=== PATIENT | female | born 2005 | race Two or more races ===

== ENCOUNTER 2024-03-26 14:56 | Emergency (ER) | payer MEDICAID, SELFPAY ==
[2024-03-26 15:44] VITALS: BP 111/75; PULSE 79; RESP 16; TEMP 36.9; O2SAT 96
--- NOTE | 2024-03-26 15:50 | XR_ITS ---
Examination: Complete OB ultrasound, less than 14 weeks, transabdominal Date and time of exam: March 26, 2024 at 1626 hrs. Indications: Onset of vaginal bleeding and pelvic pain beginning today Technique: Obstetrical ultrasound images less than 14 weeks performed via transabdominal imaging Findings: Uterus 9.1 x 4.4 x 5.5 cm No uterine mass or intrauterine gestation Endometrial stripe 0.5 cm Right ovary 3.8 x 1.9 x 2.7 cm arterial flow Left ovary 4.1 x 2.0 x 2.5 cm arterial flow Impression: No uterine mass or intrauterine gestation
--- NOTE | 2024-03-26 15:50 | PD.EDRME ---
Rapid Medical Screening Exam RME Arrival date/time: 03/26/24 14:56 18-year-old female approximately 5 weeks gestation reports with complaints of copious amounts of vaginal bleeding since this morning Chief Complaint: Abdominal Pain Time Seen by Provider: 03/26/24 15:44 Vital signs: Vital Signs Temperature 98.5 F 03/26/24 15:44 Pulse Rate 79 03/26/24 15:44 Respiratory Rate 16 03/26/24 15:44 Blood Pressure 111/75 03/26/24 15:44 Pulse Oximetry (%) 96 03/26/24 15:44 Oxygen Delivery Method Room Air 03/26/24 15:44
[2024-03-26 16:36] LABS: Beta HCG,Quantitative 162 mIU/mL (<5.0)
[2024-03-26 18:03] LABS: Collection Type, Urine Clean Catch
[2024-03-26 18:33] LABS: Bilirubin,Urine Negative (Negative); Blood,Urine 3+ (Negative); Clarity,Urine Clear (Clear/Hazy); Color,Urine Lt-Yellow (Lt Yel-Yel); Culture Indicated,Urine Not Indicated; Glucose, Urine Negative (Negative); Ketones,Urine Negative (Negative); Leukocyte Esterase,Urine Negative (Negative); Nitrite,Urine Negative (Negative); Protein,Urine Negative (Neg - Trace); RBC,Urine 3 /hpf (0-3); Specific Gravity,Urine 1.007 (1.001-1.035); Squamous Epithelial Cell,Urine 1 /hpf (0-5); Urobilinogen,Urine Negative mg/dL (0.0-1.0); WBC,Urine < 1 /hpf (0-5)
--- NOTE | 2024-03-26 19:17 | EDNOTE_ITS ---
ED OB Contraction Preg RMI/HPI General Chief complaint: Abdominal Pain Stated complaint: 5 WEEKS WITH VAGINAL BLEEDING Time Seen by Provider: 03/26/24 15:44 Arrival date/time: 03/26/24 14:56 18-year-old female presents emergency department complaining of vaginal bleeding when she uses the restroom and wipes to clean herself. Patient reports has not been bleeding enough the place pad but does notice bleeding when wiping. Patient denies any fever, chills, abdominal pain, nausea vomiting, weakness, or any other associated symptoms. Limitations: no limitations RME / HPI RME / HPI Narrative: 03/26/24 14:56 18-year-old female approximately 5 weeks gestation reports with complaints of copious amounts of vaginal bleeding since this morning Related Data : 2 Para: 1 Home Medications ?Medication ?Instructions ?Recorded ?Confirmed vits no.124-ferrous fum 1 tab PO QDAY 08/24/19 08/25/19 27 mg iron-folic acid 800 mcg tablet ( Vitamin) Allergies Allergy/AdvReac Type Severity Reaction Status Date / Time Penicillins Allergy Severe Hives Verified 03/26/24 15:04 Review of Systems Review of Systems Systems Reviewed: All systems reviewed, normal except as documented Constitutional Constitutional: Reports system reviewed and no additional complaints, except as documented, Denies body ache(s), Denies chills and Denies fever(s) Eyes Eyes: Reports system reviewed and no additional complaints, except as documented and Denies change in vision ENT Ears, Nose, Mouth, and Throat: Reports system reviewed and no additional complaints, except as documented, Denies disequilibrium, Denies dizziness, Denies sore throat and Denies vertigo Cardiovascular Cardiovascular: Reports system reviewed and no additional complaints, except as documented, Denies chest pain and Denies dyspnea Respiratory Respiratory: Reports system reviewed and no additional complaints, except as documented, Denies chest congestion, Denies cough and Denies dyspnea Gastrointestinal Gastrointestinal: Reports system reviewed and no additional complaints, except as documented, Denies abdominal pain, Denies nausea and Denies vomiting Genitourinary Genitourinary: Reports abnormal vaginal bleeding Musculoskeletal Musculoskeletal: Reports system reviewed and no additional complaints, except as documented, Denies abnormal gait and Denies arthralgias Integumentary/Breasts Skin/Breast: Reports system reviewed and no additional complaints, except as documented, Denies erythema, Denies rash and Denies wounds Neurologic Neurologic: Reports system reviewed and no additional complaints, except as documented, Denies abnormal gait, Denies disequilibrium, Denies dizziness and Denies vertigo Past Medical History Past Medical History NEUROLOGIC: Negative Neurological Disorders CARDIAC: Negative Cardiac Disorders or Congestive Heart Failure RESPIRATORY: Positive Asthma (LAST USE OF INHALER ONE YR AGO); Negative Chronic Obstructive Pulmonary Disease (COPD) GASTROINTESTINAL: Negative Gastrointestinal Disorders or Hepatitis GENITOURINARY: Negative Genitourinary Disorders or Renal Disease MUSCULOSKELETAL: Negative Musculoskeletal Disorders ENDOCRINE: Negative Endocrine Disorders, Diabetes Mellitus Type 1 or Diabetes Mellitus Type 2 HEMATOLOGIC: Negative Blood Disorders PSYCHO/SOCIAL: Positive Anxiety (NO MEDS THERAPY ONE YR AGO) and Self- Mutilation (CUTTING ONE YEAR AGO NO MEDS) OTHER HISTORY: Positive Hospitalization and Chicken Pox ( CHILD IN [place]); Negative Autoimmune Disease, Down Syndrome, Developmental Delay, Shingles, Falls, Anesthesia Reactions, MRSA, VRSA, Vancomycin-Resistant Enterococci, Human Immunodeficiency Virus (HIV), Measles, Mumps, Rubella (Citizen [place] Measles), Pertussis, Clostridium Difficile or Cancer Family History FAMILY HISTORY: Positive Family Cardiac Disorders (MATERNAL GRANDMOTHER); Negative Family Psychiatric Problems, Family Respiratory Disorders, Family Gastrointestinal Problems, Family Cancer, Family Surgery or Family Anesthesia Reaction Social History SMOKING STATUS: Never smoker ED Exam General Limitations: Present no limitations General appearance: Present alert and in no apparent distress Head Head exam: Present atraumatic Eye Eye exam: Present normal appearance, PERRL and EOMI ENT ENT exam: Present normal exam, normal oropharynx and mucous membranes moist Neck Neck exam: Present normal inspection, full ROM and trachea midline Chest Chest inspection: Present normal inspection and symmetric chest wall rise Respiratory Respiratory exam: Present normal lung sounds bilaterally Cardiovascular Cardiovascular exam: Present regular rate, normal rhythm and normal heart sounds Abdominal Exam Abdominal exam: Present soft and normal bowel sounds Extremities Exam Extremities exam: Present normal inspection and full ROM Back Exam Back exam: Present normal inspection and full ROM Neurological Exam Neurological exam: Present alert, oriented X3 and CN II-XII intact Psychiatric Psychiatric exam: Present normal affect and normal mood Skin Skin exam: Present warm, dry, intact and normal color Course Quality Measures none Orders Category Date Time Status US OB <= 14 weeks fetus Stat Exams 03/26/24 15:50 Completed Beta HCG,Quantitative Stat Lab 03/26/24 16:03 Completed Chlamydia/GC/TV - PCR Stat Lab 03/26/24 17:45 Received UA, C/S IF [Urinalysis, C/S if Indicated] Stat Lab 03/26/24 17:45 Completed Vital Signs Vital signs: Vital Signs Temperature 98.5 F 03/26/24 15:44 Pulse Rate 79 03/26/24 15:44 Respiratory Rate 16 03/26/24 15:44 Blood Pressure 111/75 03/26/24 15:44 Pulse Oximetry (%) 96 03/26/24 15:44 Oxygen Delivery Method Room Air 03/26/24 15:44 96% room air within normal limits Vaginal Bleeding MDM Narrative MDM Narrative: 18-year-old female approximately 5 weeks presents emergency department complaining of vaginal bleeding when she uses the restroom and wipes to clean herself. Patient reports has not been bleeding enough the place pad but does notice bleeding when wiping. Patient denies any fever, chills, abdominal pain, nausea vomiting, weakness, or any other associated symptoms. Patient appears nontoxic and is hemodynamically stable. Ultrasound was unremarkable for any intrauterine gestation but may be too early. Beta hCG 162. Urinalysis was unremarkable. Patient discharged and instructed to follow-up with CLASSIFIER OPERATOR for repeat ultrasound and beta-hCG trend. Instructed to return to emergency department for any worsening symptoms or as needed. Patient data External records reviewed:: [facility] previous records Clinical information provided by:: patient Social determinants that could affect healthcare access:: none Patient has the following chronic illnesses:: None How is presenting disease/condition affected by chronic disease/condition?: no chronic disease Evaluation data The following diagnostics were reviewed and interpreted by me:: lab results and radiology exam(s) Lab and/or radiology exams considered but not ordered:: Ordered Interpretation Summary: Interpreted by me Medications / Prescriptions Medications or Prescriptions considered but not ordered:: N/A Medication administrations:: N/A Consultations Consultation(s) initiated? (list below): No Diagnosis Vaginal Bleeding Differential Diagnosis: threatened , incomplete and vaginal bleeding Most likely diagnosis given after review of the tests above:: Vaginal bleeding affecting early Admission Indicated Admission indicated?: not indicated Admission Request Was there a request for admission?: No Disposition Plan Disposition Plan: Discharge Discharge Attestation Discharge Attestation: The patient and all family members were given an opportunity to ask questions and understood the discharge instructions. Discharge instructions specifically effects, indications for sooner follow up or return to the emergency department, and the expected course of current diagnosis. Patient condition: Stable Discharge Plan Plan Patient Disposition: HOME (Self Care) Disposition Comment: Stable Prescriptions/Referrals Prescriptions/Med Rec: No Action Vitamin 27 mg iron- 800 mcg Tablet 1 tab PO QDAY Referrals: Albert Johnson MD [Primary Care Provider] - In 1 week Problem List Clinical Impression: Vaginal bleeding affecting early Patient/Caregiver Discharge Instructions Discharge Activity: activity as tolerated Education Materials: Bleeding During Early Additional Instructions: Pelvic rest. Encourage fluids. Close follow-up with CLASSIFIER OPERATOR 24 to 48 hours for repeat ultrasound and beta-hCG trend. Print Language: Maltese Stand Alone Forms: Brianna Award Info., Patient Portal Info Letter PA/DIRECTOR OF CORPORATE STRATEGY Supervising Physician PA/DIRECTOR OF CORPORATE STRATEGY Supervising Physician: Dr. Stanley
[2024-03-27 08:58] LABS: Chlamydia trachomatis PCR Negative (Not Detect); Neisseria Gonorrhoeae DNA PCR Negative (Not Detect); Trichomonas Negative (Negative)
== END 2024-03-26 19:23 | disposition home or self-care (01) ==
PROVIDERS: Physician Assistant; Emergency Provider Emergency Medicine; PCP Family Medicine
DX: O20.9 Hemorrhage in early pregnancy, unspecified (principal); Z3A.01 Less than 8 weeks gestation of pregnancy
CPT/HCPCS: 36415; 76801; 81001; 84702; 87491; 87591; 87661; 99284

== ENCOUNTER 2024-07-17 14:14 | Emergency (ER) | payer MEDICAID, SELFPAY ==
[2024-07-17 14:15] VITALS: BMI 28.3
[2024-07-17 14:22] VITALS: BP 129/78; PULSE 97; RESP 18; TEMP 36.7; O2SAT 98
--- NOTE | 2024-07-17 14:27 | XR_ITS ---
Examination: Complete OB ultrasound, less than 14 weeks, transabdominal Date and time of exam: July 17, 2024 1457 hours INDICATIONS: Pelvic pressure with discharge, vaginal, today Technique: Obstetrical ultrasound images less than 14 weeks performed via transabdominal imaging Findings: A normal shaped single intrauterine gestation is present in the uterus. pole 2.6 cm corresponds to 9 weeks 2 days gestational age Cardiac motion 182 BPM Ultrasonographic survey of visible and placental structures unremarkable. Amniotic fluid volume appears appropriate for this estimated gestational age. Right ovary obscured by bowel gas Left ovary 3.3 cm arterial flow IMPRESSION: Viable intrauterine gestation 9 weeks 2 days.
[2024-07-17 15:10] LABS: Basophils % (Auto) 0 % (0-2.5); Eosinophils # (Auto) 0.1 Thou/mm3 (0.0-0.5); Eosinophils % (Auto) 1 % (0-10); Hematocrit 36.5 % (36.0-46.0); Hemoglobin 12.7 g/dL (12.0-16.0); Immature Granulocytes % (Auto) 1 % (0-0); Immature Granulocytes Auto 0.05 Thou/mm3 (0.00-0.00); Lymphocytes # (Auto) 2.1 Thou/mm3 (1.0-4.8); Lymphocytes % (Auto) 21 % (10-50); Mean Corpuscular HGB Conc 34.8 g/dl (31.0-37.0); Mean Corpuscular Hemoglobin 30.5 pg (25.0-35.0); Mean Corpuscular Volume 88 fL (80-100); Monocytes # (Auto) 0.8 Thou/mm3 (0.0-0.8); Monocytes % (Auto) 7 % (0-12); Neutrophils # (Auto) 7.2 Thou/mm3 (1.8-7.7); Neutrophils % (Auto) 70 % (37-80); Nucleated Red Blood Cell % 0 /100 WBC (0); Platelet Count 263 Thou/mm3 (140-440); RDW Standard Deviation 39.1 fL (36.4-46.3); Red Blood Count 4.16 Miln/mm3 (4.00-5.20); White Blood Count 10.2 Thou/mm3 (3.6-11.0)
[2024-07-17 15:24] LABS: Collection Type, Urine Clean Catch
[2024-07-17 15:28] LABS: Alanine Aminotransferase 22 U/L (10-49); Albumin, Serum 4.1 gm/dL (3.5-5.0); Albumin/Globulin Ratio 1.4 (1.2-2.2); Alkaline Phosphatase 111 U/L (46-116); Anion Gap 10 (7-16); Aspartate Amino Transferase 21 U/L (0-34); BUN/Creatinine Ratio 10 Ratio (12-20); Bilirubin,Total 0.3 mg/dL (0.3-1.2); Blood Urea Nitrogen 6 mg/dL (9-23); Calcium 9.1 mg/dL (8.3-10.6); Calcium (Corrected) 9.1 mg/dL (8.5-10.1); Carbon Dioxide 24.1 mMol/L (20.0-31.0); Chloride 104 mMol/L (98-107); Creatinine (Component) 0.6 mg/dL (0.6-1.3); Estimated Creatinine Clearance 130.9 mL/min (>60); Glucose 98 mg/dL (74-106); Osmolality,Calculated 273 (275-295); Potassium 3.6 mMol/L (3.4-5.1); Sodium 138 mMol/L (136-145); Total Protein 7.1 gm/dL (5.7-8.2); eGFR > 60 See Note
[2024-07-17 15:41] LABS: Bilirubin,Urine Negative (Negative); Blood,Urine Trace (Negative); Clarity,Urine Clear (Clear/Hazy); Color,Urine Lt-Yellow (Lt Yel-Yel); Culture Indicated,Urine Not Indicated; Glucose, Urine Negative (Negative); Ketones,Urine Negative (Negative); Leukocyte Esterase,Urine Negative (Negative); Nitrite,Urine Negative (Negative); PH,Urine 6.5 (5.0-7.0); Protein,Urine Negative (Neg - Trace); RBC,Urine < 1 /hpf (0-3); Specific Gravity,Urine 1.008 (1.001-1.035); Squamous Epithelial Cell,Urine 2 /hpf (0-5); Urobilinogen,Urine Negative mg/dL (0.0-1.0); WBC,Urine < 1 /hpf (0-5)
[2024-07-17 16:12] VITALS: BP 135/84; PULSE 95; RESP 18; TEMP 36.9; O2SAT 99
--- NOTE | 2024-07-17 17:30 | EDNOTE_ITS ---
<Statement entered by Gail Gunter MD - 07/24/24 06:24> As co-signing physician, I was present and available for consult prn. I concur with the plan and care as documented by the midlevel provider. ED OB Contraction Preg RMI/HPI General Chief complaint: Vaginal Bleeding Stated complaint: VAG BLEED NO CRAMPING, 11WK PREG Time Seen by Provider: 07/17/24 14:19 Arrival date/time: 07/17/24 14:14 19-year-old female with no significant medical problems presents to the emergency department complaints of vaginal bleeding patient reports no pain patient reports being approximately 11 weeks Limitations: no limitations Related Data Home Medications ?Medication ?Instructions ?Recorded ?Confirmed vits no.124-ferrous fum 1 tab PO QDAY 0 08/25/19 27 mg iron-folic acid 800 mcg tablet ( Vitamin) Allergies Allergy/AdvReac Type Severity Reaction Status Date / Time Penicillins Allergy Severe Hives Verified 07/17/24 14:17 Review of Systems Review of Systems Systems Reviewed: All systems reviewed, normal except as documented Constitutional Constitutional: Reports system reviewed and no additional complaints, except as documented, Denies fever(s) and Denies headache(s) Eyes Eyes: Reports system reviewed and no additional complaints, except as documented and Denies blurry vision ENT Ears, Nose, Mouth, and Throat: Reports system reviewed and no additional complaints, except as documented, Denies headache(s), Denies nasal congestion and Denies nasal discharge Cardiovascular Cardiovascular: Reports system reviewed and no additional complaints, except as documented, Denies chest pain and Denies dyspnea Respiratory Respiratory: Reports system reviewed and no additional complaints, except as documented, Denies chest congestion, Denies cough and Denies dyspnea Gastrointestinal Gastrointestinal: Reports system reviewed and no additional complaints, except as documented and Denies abdominal pain Genitourinary Genitourinary: Reports system reviewed and no additional complaints, except as documented and Reports abnormal vaginal bleeding Integumentary/Breasts Skin/Breast: Reports system reviewed and no additional complaints, except as documented and Denies rash Neurologic Neurologic: Reports system reviewed and no additional complaints, except as documented, Reports as per HPI and Denies headache(s) Past Medical History Past Medical History NEUROLOGIC: Negative Neurological Disorders CARDIAC: Negative Cardiac Disorders or Congestive Heart Failure RESPIRATORY: Positive Asthma (LAST USE OF INHALER ONE YR AGO); Negative Chronic Obstructive Pulmonary Disease (COPD) GASTROINTESTINAL: Negative Gastrointestinal Disorders or Hepatitis GENITOURINARY: Negative Genitourinary Disorders or Renal Disease MUSCULOSKELETAL: Negative Musculoskeletal Disorders ENDOCRINE: Negative Endocrine Disorders, Diabetes Mellitus Type 1 or Diabetes Mellitus Type 2 HEMATOLOGIC: Negative Blood Disorders PSYCHO/SOCIAL: Positive Anxiety (NO MEDS THERAPY ONE YR AGO) and Self- Mutilation (CUTTING ONE YEAR AGO NO MEDS) OTHER HISTORY: Positive Hospitalization and Chicken Pox ( CHILD IN [place]); Negative Autoimmune Disease, Down Syndrome, Developmental Delay, Shingles, Falls, Anesthesia Reactions, MRSA, VRSA, Vancomycin-Resistant Enterococci, Human Immunodeficiency Virus (HIV), Measles, Mumps, Rubella ([place] Measles), Pertussis, Clostridium Difficile or Cancer Family History FAMILY HISTORY: Positive Family Cardiac Disorders (MATERNAL GRANDMOTHER); Negative Family Psychiatric Problems, Family Respiratory Disorders, Family Gastrointestinal Problems, Family Cancer, Family Surgery or Family Anesthesia Reaction Social History SMOKING STATUS: Never smoker ED Exam General Limitations: Present no limitations General appearance: Present alert and in no apparent distress Head Head exam: Present atraumatic, normocephalic and normal inspection Eye Eye exam: Present normal appearance, PERRL and EOMI; Absent conjunctival injection ENT ENT exam: Present normal exam, normal oropharynx and mucous membranes moist Neck Neck exam: Present normal inspection, full ROM and trachea midline Chest Chest inspection: Present normal inspection and symmetric chest wall rise Respiratory Respiratory exam: Present normal lung sounds bilaterally; Absent respiratory distress Cardiovascular Cardiovascular exam: Present regular rate, normal rhythm and normal heart sounds Abdominal Exam Abdominal exam: Present soft and normal bowel sounds; Absent distention, tenderness, guarding, rebound or rigidity Extremities Exam Extremities exam: Present normal inspection and full ROM Back Exam Back exam: Present normal inspection and full ROM Neurological Exam Neurological exam: Present alert, oriented X3 and CN II-XII intact Psychiatric Psychiatric exam: Present normal affect and normal mood Skin Skin exam: Present warm, dry, intact and normal color Course Quality Measures none Orders Category Date Time Status US OB <= 14 weeks fetus Stat Exams 07/17/24 14:27 Completed ABO/RH Type Stat Lab 07/17/24 14:37 Completed Beta HCG,Quantitative Stat Lab 07/17/24 14:37 Completed CBC Stat Lab 07/17/24 14:37 Completed Comprehensive Metabolic Panel Stat Lab 07/17/24 14:37 Completed UA, C/S IF [Urinalysis, C/S if Indicated] Stat Lab 07/17/24 15:15 Completed Vital Signs Vital signs: Vital Signs Temperature 98.1 F 07/17/24 14:22 Pulse Rate 97 07/17/24 14:22 Respiratory Rate 18 07/17/24 14:22 Blood Pressure 129/78 07/17/24 14:22 Pulse Oximetry (%) 98 07/17/24 14:22 Oxygen Delivery Method Room Air 07/17/24 14:22 O2 saturation 98% room air within normal limits Vaginal Bleeding MDM Narrative MDM Narrative: 19-year-old female with no significant medical problems presents to the emergency department complaints of vaginal bleeding patient reports no pain patient reports being approximately 11 weeks On exam patient well-appearing patient does not appear ill or toxic patient is not in no acute distress Lab work and imaging obtained consistent with viable Patient discharged home in no distress to follow-up with primary care doctor in the next 24 to 48 hours and for any worsening symptoms to return to the ER immediately Patient data External records reviewed:: [facility] previous records Clinical information provided by:: patient Social determinants that could affect healthcare access:: none Patient has the following chronic illnesses:: None How is presenting disease/condition affected by chronic disease/condition?: no chronic disease Evaluation data The following diagnostics were reviewed and interpreted by me:: lab results and radiology exam(s) Lab and/or radiology exams considered but not ordered:: Labs radiology obtain Interpretation Summary: Reviewed by me Medications / Prescriptions Medications or Prescriptions considered but not ordered:: Given Medication administrations:: Given Consultations Consultation(s) initiated? (list below): No Diagnosis Vaginal Bleeding Differential Diagnosis: missed and threatened Most likely diagnosis given after review of the tests above:: Threatened Admission Indicated Admission indicated?: not indicated Admission Request Was there a request for admission?: No Disposition Plan Disposition Plan: Discharge Discharge Attestation Discharge Attestation: The patient and all family members were given an opportunity to ask questions and understood the discharge instructions. Discharge instructions specifically effects, indications for sooner follow up or return to the emergency department, and the expected course of current diagnosis. Patient condition: Stable Discharge Plan Plan Patient Disposition: HOME (Self Care) Disposition Comment: Stable Prescriptions/Referrals Prescriptions/Med Rec: No Action Vitamin 27 mg iron- 800 mcg Tablet 1 tab PO QDAY Referrals: Alex,Albert Y, MD [Primary Care Provider] - In 1 week Problem List Clinical Impression: Vaginal bleeding during Patient/Caregiver Discharge Instructions Education Materials: Bleeding During Early Additional Instructions: Please follow up with your PULVERIZER OPERATOR in the next 24-48hrs for any worsening symptoms return here immediately Print Language: Frisian Stand Alone Forms: Brianna Award Info., Patient Portal Info Letter PA/[employer]ITE [employer]ILER Supervising Physician PA/[employer]ILER Supervising Physician: Dr. Gunter
== END 2024-07-17 17:46 | disposition home or self-care (01) ==
PROVIDERS: Nurse Practitioner Primary Care; Emergency Provider Emergency Medicine; PCP Family Medicine
DX: O20.9 Hemorrhage in early pregnancy, unspecified (principal); Z3A.09 9 weeks gestation of pregnancy
CPT/HCPCS: 36415; 76801; 80053; 81001; 84702; 85025; 86900; 86901; 99284

== ENCOUNTER 2024-07-25 15:04 | Outpatient (AMB) | payer MEDICAID, SELFPAY ==
--- NOTE | 2024-07-25 15:11 | OBCLNT_ITS ---
Vital Signs 07/25/24 15:25 Height 1.55 m Height Method Stated Weight 70.931 kg Weight Measurement Method Standing Scale BMI 29.5 BP 117/78 Blood Pressure Source Automatic Cuff Blood Pressure Location Left Upper Arm Position Sitting Respiration 18 Pulse 98 Pulse Source Monitor Temp 97.8 F Temp Source Oral Pulse Oximetry (%) 97 Oxygen Delivery Method Room Air Allergies/Home Meds Allergies & Medications Allergies Penicillins Allergy (Severe, Verified 07/25/24 15:26) Hives Medication Reconciliation vits no.124-ferrous fum 27 mg iron-folic acid 800 mcg tablet ( Vitamin) 1 tab PO QDAY 90 days #90 tabs 07/25/24 [Rx] Intake Visit Data Collection New Patient or Established: Established Patient (seen at [facility] within 3 years) Reason for Visit:: CARE Seen by Clinical Staff ONLY (RN/MA): No Tmh Teacher Required: No Do You Feel Safe at Home: Yes Authorities Contacted: N/A PCP or OBGYN visit in last 3 months: No Hx Now: Yes Are you currently on any form of Control: No Last menstrual period: 04/29/24 Pain Present Currently: No Pain Scale Used: Gonzalez-Ram/Numerical Pain scale:: 0 Smoking Status Smoking Status: Never smoker Questionnaires Covid-19 Vaccine Questionnaire Has patient been vacinated for Covid-19 Have you been vacinated for Covid-19: No PHQ-9 PHQ-2 Over the last 2 weeks, how often have you been bothered by any of the following problems? 1. Little interest or pleasure in doing things: nearly every day 2. Feeling down, depressed, or hopeless: not at all Total score: 3 PHQ-9 3. Trouble falling or staying asleep, or sleeping too much: Not at all 4. Feeling tired or having little energy: Nearly every day 5. Poor appetite or overeating: Nearly every day 6. Feeling bad about yourself - or that you are a failure or have let yourself or your family down: Not at all 7. Trouble concentrating on things, such as reading the newspaper or watching television: Not at all 8. Moving or speaking so slowly that other people could have noticed? - Or the opposite - being so fidgety or restless that you have been moving around a lot more than usual: not at all 9. Thoughts that you would be better off or of hurting yourself in some way: Not at all Total score: 9.0 If you checked off any problems, how difficult have these problems made it for you to do your work, take care of things at home, or get along with other people?: somewhat difficult Source: Developed by Drs. Vargas Landry, Lisa Javier, Hans Moeller and colleagues, with an educational ghassan from [employer]. Depression screen completed yes Social History Living Situation History Marital Status: Lives With: Family Housing: House Tobacco History Smoking Status: Never smoker Second Hand Smoke Exposure: No Alcohol History Alcohol Intake: Never Domestic Abuse History Do You Feel Safe at Home: Yes Past Medical History Past Medical History Have you ever been diagnosed with any of the following: Neurological Problems Cerebrovascular Accident (CVA): No Transient Ischemic Attacks (TIA): No Dementia: No Alzheimer's Disease: No Parkinson's Disease: No Brain Tumor: No Guillain-[place] Syndrome: No Bustamante's Palsy: No Spinal Cord Injury: No Cardiology Problems Myocardial Infarction: No Cardiac Arrhythmia: No Atrial Fibrillation: No Angina: No Heart Murmur: No Congestive Heart Failure: No Respiratory Problems Chronic Obstructive Pulmonary Disease (COPD): No Asthma: Yes (LAST USE OF INHALER ONE YR AGO) Bronchitis: No Emphysema: No Pneumonia: No Pulmonary Fibrosis: No Tuberculosis: No Hx Cough: No Cough: No Wheezing: No Chest Deformities: No Smoking: No Smoking Cessation Counseling: No Smoking Exposure: No Tobacco Use: No Stomache/Intestinal Problems Liver Cancer: No Hepatitis: No Cirrhosis: No Pancreatic Cancer: No Pancreatitis: No Celiac Disease: No Gall Bladder Disease: No Colitis: No Genital/Urinary Problems Chronic Kidney Disease: No Renal Disease: No Reproductive Problems Breast Cancer: No Endometriosis: No Fibroids: No Genital Herpes: No Musculoskeletal Problems Muscular Dystrophy: No Myasthenia Gravis: No Marfan's Syndrome: No Bone Cancer: No Head,Eye,Nose,Throat Problems Cataracts: No Glaucoma: No Blind: No Retinal Detachment: No Macular Degeneration: No Endocrine Problems Diabetes Mellitus Type 1: No Diabetes Mellitus Type 2: No [place]'s Syndrome: No [place]'s Disease: No Thyroid Cancer: No Adrenal Disease: No Graves' Disease: No Blood Problems Anemia: No Leukemia: No Hemophilia: No Thalassemia: No Sickle Cell Disease: No Clotting Problems: No Psychologic Problems Schizophrenia: No Recreational Drug Use: No Bipolar Disorder: No Depression: Yes Anxiety: Yes (NO MEDS THERAPY ONE YR AGO) Self-Mutilation: Yes (CUTTING ONE YEAR AGO NO MEDS) Attention Deficit Disorder: No Depression: No Post Traumatic Stress Disorder: No Other Problems Hospitalization: Yes Autoimmune Disease: No Down Syndrome: No Developmental Delay: No Shingles: No Falls: No Anesthesia Reactions: No MRSA: No VRSA: No Vancomycin-Resistant Enterococci: No Human Immunodeficiency Virus (HIV): No Chicken Pox: Yes ( CHILD IN [place]) Measles: No Mumps: No Rubella (Romanian Measles): No Pertussis: No Clostridium Difficile: No Cancer: No History of Present Illness HPI Narrative This is a 19-year-old 4 para 1 SAB 2 that comes to the [facility] clinic for initial OB appointment. Patient's last. Is April 29, 2024. This gives EDC of February 01, 2025, making patient 12 weeks 6 days. Patient was previously seen in [facility] ED for spotting she had an OB sono done July 17, 2024 and patient at that time measured 9 weeks 2 days with heart rate of 182 patient denies bleeding or cramping or signs of SAB at this time. She reports hx of asthma, uses MID as needed, denies wheezing or respiratory difficulty at this time. Denies any social habits. De nies surgeries. So patient is 10 weeks 3 today. Patient complains of mild nausea. She declines medication at this time. She like a refill on her prenatals. Patient is very happy about . OB Initial Visit Menstrual History Menstrual reliability: definite Flow: normal Menstrual regularity: regular Monthly: Yes Age at menarche: 10 On control pills at conception: No Date of positive home test: 06/11/24 Associated symptoms (LMP): Reports nausea, vomiting, fatigue and irritability OB History : 4 Para: 1 Hx Total # of Abortions (Spontaneous & Elective): 0 # of Living Children: 1 Delivery History 1st : Child's name: CANDELARIA date: 08/26/19 sex: female Delivery type: vaginal Delivery complications: denies History of depression before or after : No Infection History & Risk Evaluation History of STDs: none Genetic Screening & History Genetic Screening/Teratology Counseling - Includes patient, baby's father, or anyone in either family with: 1. Patient's age 35 years or older as of estimated date of delivery: No 2. Thalassemia ([place]ian, Citizen Of [place], Mediterranean, or Background); MCV less than 80: No 3. Neural Tube Defect (Meningomyelocele, Spina Bifida, or Anencephaly): No 4. Congenital Heart Defect: No 5. Down Syndrome: No 6. Brian-Sachs (Ashkenazi Bahai, Cajun, Latvian Stateless): No 7. Benigno Disease (Ashkenazi Bahai): No 8. Familial Dysautonomia (Ashkenazi Bahai): No 9. Sickle Cell Disease or Trait (): No 10. Hemophilia or other blood disorders: No 11. Muscular Dystrophy: No 12. Cystic Fibrosis: No 13. [place]'s Chorea: No 14. Mental Retardation/Autism: No 15. Other inherited genetic or chromosomal disorder: No 16. Maternal Metabolic Disorder (EG,TYPE 1 Diabetes, PKU): No 17. Patient or baby's father had a child with defects not listed above: No 18. Recurrent loss or a stillbirth: No 19. Medications (including supplements, vitamins, herbs or otc drugs)/illicit/recreational drugs/alcohol since last menstrual period: No 20. Any other: No Infection History 1. Live with someone with TB or exposed to TB: No 2. Rash or viral illness since last menstrual period: No 3. Hepatitis B,C: No Other (see comments) Source: [employer] OB Flowsheet OB Flowsheet Initial Weight: Not Recorded Date -?-?-?-?-?-?-?-?-?-?-?-?- EGA Weight Edema CTX Effacement BP Fundal ht Pres Dilation Effacement Station Visit Note Alb Glu FHR Mov 07/25/24 -?-?-?-?-?-?-?-?-?-?-?-?- 10w 3d 70.931 kg absent absent 117/78 10 This is a 19-year-old 4 para 2 poor dates. EDC was corrected to February 18, 2025 by a 9-week 2 ultrasound. Patient is 10 weeks today. She denies bleeding or cramping at this time. She reports nausea but wants to wait on medication to help with that. So I discussed comfort measures for nausea with patient dry diet small meals. I scheduled NT and anatomy scan with maternal- medicine. OB panel was ordered her NIPT and cystic fibrosis and spinal muscular atrophy were also ordered. Discussed SAB precautions. And [facility] vitamins to [facility]. And patient will be seen in 4 weeks. 155 absent Review of Systems Review of Systems Systems Reviewed: All systems reviewed, normal except as documented Constitutional Constitutional: Reports fatigue Gastrointestinal Gastrointestinal: Reports nausea and Reports vomiting Psychiatric Psychiatric: Reports irritability Endocrine Endocrine: Reports fatigue Exam General Limitations: no limitations General Appearance: alert, in no apparent distress, comfortable, cooperative, healthy appearing, well developed and well groomed Head Head exam: atraumatic, normocephalic and normal inspection Neck Neck exam: Present normal inspection, full ROM and trachea midline Chest Chest inspection: Present normal inspection and symmetric chest wall rise Resp Respiratory exam: Present normal lung sounds bilaterally Card Cardiovascular exam: Present regular rate, normal rhythm and normal heart sounds Abdominal Abdominal exam: Present soft (gravid abdomen, IUP 10 w, fht: 156) and normal bowel sounds Psych Psychiatric exam: Present normal affect and normal mood Assessment & Plan Diagnosis / Problem List (1) Encounter for supervision of other normal , first trimester: Status: Acute Plan Discussed SAB precautions. No sex. Increase fluids. Schedule NT scan and anatomy scan with perinatology. Ordered panel and NIPT and carrier screening for patient. Refill vitamins for patient. I gave her an 90- day supply with 3 refills. Return in 4 weeks visit Additional Plan Follow Up: 4 Weeks (rtc 4 week OB visit) Office Procedures OB Clinic LOC & Office Proc's Nursing/Assessment Patient Status: Established Patient OB Clinic Nursing Assessment: Medication Reconciliation, Update PMH in EMR and Vital Signs OB Clinic Coordination of Care: Complex Care and Chronic Disease 1-5, Consent,re cords obtained, informed consent, Education Simp Pt/Fam, Lab and Imaging orders and Staff clarify orders Special Needs: Heart tones Established Patient Charge Established Patient Point Assignment: 130 Established Patient Point Charge: EP Level 4 (120-155)
[2024-07-25 15:25] VITALS: BP 117/78; PULSE 98; RESP 18; TEMP 36.6; O2SAT 97; BMI 29.5
== END 2024-07-25 15:54 | disposition home or self-care (01) ==
LOC: HODSOBC 15:04
PROVIDERS: Supervising Provider Obstetrics & Gynecology; Visit Provider Advanced Practice Midwife
DX: Z34.81 Encounter for supervision of other normal pregnancy, first trimester (principal); Z3A.10 10 weeks gestation of pregnancy
CPT/HCPCS: 99214; G0463

== ENCOUNTER 2024-08-23 11:05 | Outpatient (AMB) | payer MEDICAID, SELFPAY ==
[2024-08-23 11:30] VITALS: BP 115/79; PULSE 89; RESP 18; TEMP 36.5; O2SAT 98; BMI 28.9
--- NOTE | 2024-08-23 11:30 | OBCLNT_ITS ---
Vital Signs 08/23/24 11:30 Height 1.55 m Height Method Stated Weight 69.456 kg Weight Measurement Method Standing Scale BMI 28.9 BP 115/79 Blood Pressure Source Automatic Cuff Blood Pressure Location Left Upper Arm Position Sitting Respiration 18 Pulse 89 Pulse Source Monitor Temp 97.7 F Temp Source Oral Pulse Oximetry (%) 98 Oxygen Delivery Method Room Air Allergies/Home Meds Allergies & Medications Allergies Penicillins Allergy (Severe, Verified 08/23/24 11:31) Hives Medication Reconciliation vits no.124-ferrous fum 27 mg iron-folic acid 800 mcg tablet ( Vitamin) 1 tab PO QDAY 90 days #90 tabs 07/25/24 [Rx Confirmed 08/23/24] vits no.126-ferrous fum 28 mg iron-folic acid 800 mcg tablet (Classic ) 0.126 - 28 tab PO DAILY 30 days #60 tabs 08/23/24 [Rx] Intake Visit Data Collection New Patient or Established: Established Patient (seen at [facility] within 3 years) Reason for Visit:: CARE Seen by Clinical Staff ONLY (RN/MA): No Theater Projectionist Required: No Do You Feel Safe at Home: Yes Authorities Contacted: N/A PCP or OBGYN visit in last 3 months: Yes Hx Now: Yes Are you currently on any form of Control: No Pain Present Currently: No Pain Scale Used: Gonzalez-Ram/Numerical Smoking Status Smoking Status: Never smoker Questionnaires Covid-19 Vaccine Questionnaire Has patient been vacinated for Covid-19 Have you been vacinated for Covid-19: No PHQ-9 PHQ-2 Over the last 2 weeks, how often have you been bothered by any of the following problems? 1. Little interest or pleasure in doing things: not at all 2. Feeling down, depressed, or hopeless: not at all Total score: 0 PHQ-9 3. Trouble falling or staying asleep, or sleeping too much: Not at all 4. Feeling tired or having little energy: Not at all 5. Poor appetite or overeating: Not at all 6. Feeling bad about yourself - or that you are a failure or have let yourself or your family down: Not at all 7. Trouble concentrating on things, such as reading the newspaper or watching television: Not at all 8. Moving or speaking so slowly that other people could have noticed? - Or the opposite - being so fidgety or restless that you have been moving around a lot more than usual: not at all 9. Thoughts that you would be better off or of hurting yourself in some way: Not at all Total score: 0 Source: Developed by Drs. Vargas Landry, Lisa Javier, Hans Moeller and colleagues, with an educational ghassan from [employer]. 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 at Home: Yes Past Medical History Past Medical History Have you ever been diagnosed with any of the following: Neurological Problems Cerebrovascular Accident (CVA): No Transient Ischemic Attacks (TIA): No Dementia: No Alzheimer's Disease: No Parkinson's Disease: No Brain Tumor: No Guillain-[place] Syndrome: No Bustamante's Palsy: No Spinal Cord Injury: No Cardiology Problems Myocardial Infarction: No Cardiac Arrhythmia: No Atrial Fibrillation: No Angina: No Heart Murmur: No Congestive Heart Failure: No Respiratory Problems Chronic Obstructive Pulmonary Disease (COPD): No Asthma: Yes (LAST USE OF INHALER ONE YR AGO) Bronchitis: No Emphysema: No Pneumonia: No Pulmonary Fibrosis: No Tuberculosis: No Hx Cough: No Cough: No Wheezing: No Chest Deformities: No Smoking: No Smoking Cessation Counseling: No Smoking Exposure: No Tobacco Use: No Stomache/Intestinal Problems Liver Cancer: No Hepatitis: No Cirrhosis: No Pancreatic Cancer: No Pancreatitis: No Celiac Disease: No Gall Bladder Disease: No Colitis: No Genital/Urinary Problems Renal Disease: No Reproductive Problems Breast Cancer: No Endometriosis: No Fibroids: No Genital Herpes: No Musculoskeletal Problems Muscular Dystrophy: No Myasthenia Gravis: No Marfan's Syndrome: No Bone Cancer: No Head,Eye,Nose,Throat Problems Cataracts: No Glaucoma: No Blind: No Retinal Detachment: No Macular Degeneration: No Endocrine Problems Diabetes Mellitus Type 1: No Diabetes Mellitus Type 2: No Bj's Syndrome: No [place]'s Disease: No Thyroid Cancer: No Adrenal Disease: No Graves' Disease: No Blood Problems Anemia: No Leukemia: No Hemophilia: No Thalassemia: No Sickle Cell Disease: No Clotting Problems: No Psychologic Problems Schizophrenia: No Recreational Drug Use: No Bipolar Disorder: No Depression: Yes Anxiety: Yes (NO MEDS THERAPY ONE YR AGO) Self-Mutilation: Yes (CUTTING ONE YEAR AGO NO MEDS) Attention Deficit Disorder: No Depression: No Post Traumatic Stress Disorder: No Other Problems Hospitalization: Yes Down Syndrome: No Developmental Delay: No Shingles: No Falls: No Anesthesia Reactions: No MRSA: No VRSA: No Vancomycin-Resistant Enterococci: No Human Immunodeficiency Virus (HIV): No Chicken Pox: Yes ( CHILD IN [place]) Measles: No Mumps: No Rubella (Ugandan Measles): No Pertussis: No Clostridium Difficile: No Cancer: No Care OB Visit Log OB Flowsheet Initial Weight: Not Recorded Date -?-?-?-?-?-?-?-?-?-?-?-?- EGA Weight Edema CTX Effacement BP Fundal ht Pres Dilation Effacement Station Visit Note Alb Glu FHR Mov 07/25/24 -?-?-?-?-?-?-?-?-?-?-?-?- 10w 3d 70.931 kg absent absent 117/78 10 This is a 19-year-old 4 para 2 poor dates. EDC was corrected to February 18, 2025 by a 9-week 2 ultrasound. Patient is 10 weeks today. She denies bleeding or cramping at this time. She reports nausea but wants to wait on medication to help with that. So I discussed comfort measures for nausea with patient dry diet small meals. I scheduled NT and anatomy scan with maternal- medicine. OB panel was ordered her NIPT and cystic fibrosis and spinal muscular atrophy were also ordered. Discussed SAB precautions. [facility] And patient will be seen in 4 weeks. 155 absent 08/23/24 -?-?-?-?-?-?-?-?-?-?-?-?- 14w 4d 69.456 kg absent absent 115/79 14 patient did not do lab. IUP 14w4, poor date, f/u MFM 10/03. patient had mfm 07/15/24. ob panel re ordered with NIPT and carrier screen. keep MFM appointment. sab precaution, light movement,no sab complaints 154 active PHIL Calculator Estimated Delivery Date Method Current WG Current Estimate 11/01/25 Ultrasound #1 14w 4d Other Estimates 02/03/25 LMP (Uncertain) 16w 4d Assessment & Plan Diagnosis / Problem List (1) Encounter for supervision of normal first , second trimester: Status: Acute Plan sab precaution, re-order OB panel, NIPT and carrier screen, UTOX, keep MFM appointment 10/03. refill PNV. rtc 4 week Additional Plan Follow Up: 4 Weeks (obc) Office Procedures OB Clinic LOC & Office Proc's Nursing/Assessment Patient Status: Established Patient OB Clinic Nursing Assessment: Medication Reconciliation, Update PMH in EMR and Vital Signs OB Clinic Coordination of Care: Complex Care and Chronic Disease 1-5, Con sent,records obtained, informed consent, Education Simp Pt/Fam, Results/Orders obtained and Staff clarify orders Special Needs: Heart tones Miscellaneous Interventions: Blood/Urine Collection Established Patient Charge Established Patient Point Assignment: 150 Established Patient Point Charge: EP Level 4 (120-155)
== END 2024-08-23 11:49 | disposition home or self-care (01) ==
LOC: HODSOBC 11:05
PROVIDERS: PCP Obstetrics & Gynecology; Referring Provider Obstetrics & Gynecology; Supervising Provider Obstetrics & Gynecology; Visit Provider Obstetrics & Gynecology
DX: Z34.82 Encounter for supervision of other normal pregnancy, second trimester (principal); Z3A.14 14 weeks gestation of pregnancy
CPT/HCPCS: 99214; G0463

== ENCOUNTER 2024-09-20 10:27 | Outpatient (AMB) | payer MEDICAID, SELFPAY ==
[2024-09-20 10:47] VITALS: BP 106/64; PULSE 99; RESP 17; TEMP 36.6; O2SAT 97; BMI 29.0
--- NOTE | 2024-09-20 10:47 | OBCLNT_ITS ---
Vital Signs 09/20/24 10:47 Height 1.55 m Height Method Stated Weight 69.853 kg Weight Measurement Method Standing Scale BMI 29.0 BP 106/64 Blood Pressure Source Automatic Cuff Blood Pressure Location Right Upper Arm Position Sitting Respiration 17 Pulse 99 Pulse Source Monitor Temp 97.9 F Temp Source Temporal Artery Scan Pulse Oximetry (%) 97 Oxygen Delivery Method Room Air Allergies/Home Meds Allergies & Medications Allergies Penicillins Allergy (Severe, Verified 09/20/24 10:48) Hives Medication Reconciliation vits no.124-ferrous fum 27 mg iron-folic acid 800 mcg tablet ( Vitamin) 1 tab PO QDAY 90 days #90 tabs 07/25/24 [Rx Confirmed 09/20/24] vits no.126-ferrous fum 28 mg iron-folic acid 800 mcg tablet (Classic ) 0.126 - 28 tab PO DAILY 30 days #60 tabs 08/23/24 [Rx Confirmed 09/20/24] acetaminophen 325 mg tablet (Tylenol) 325 mg PO QID PRN pain #60 tabs 09/20/24 [Rx] Intake Visit Data Collection New Patient or Established: Established Patient (seen at [facility] within 3 years) Reason for Visit:: OBC Seen by Clinical Staff ONLY (RN/MA): No 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 1. Little interest or pleasure in doing things: not at all 2. Feeling down, depressed, or hopeless: not at all Total score: 0 PHQ-9 3. Trouble falling or staying asleep, or sleeping too much: Not at all 4. Feeling tired or having little energy: Not at all 5. Poor appetite or overeating: Not at all 6. Feeling bad about yourself - or that you are a failure or have let yourself or your family down: Not at all 7. Trouble concentrating on things, such as reading the newspaper or watching television: Not at all 8. Moving or speaking so slowly that other people could have noticed? - Or the opposite - being so fidgety or restless that you have been moving around a lot more than usual: not at all 9. Thoughts that you would be better off or of hurting yourself in some way: Not at all Total score: 0 If you checked off any problems, how difficult have these problems made it for you to do your work, take care of things at home, or get along with other people?: not difficult at all Source: Developed by Drs. Vargas Landry, Lisa Javier, Hans Moeller and colleagues, with an educational ghassan from [employer]. 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 EDC was corrected to February 18, 2025 by a 9-week 2 ultrasound. Patient is 10 weeks today. She denies bleeding or cramping at this time. She reports nausea but wants to wait on medication to help with that. So I discussed comfort measures for nausea with patient dry diet small meals. I scheduled NT and anatomy scan with maternal- medicine. OB panel was ordered her NIPT and cystic fibrosis and spinal muscular atrophy were also ordered. Discussed SAB precautions. And [facility]. And patient will be seen in 4 weeks. 08/23/24 -?-?-?-?-?-?-?-?-?-?-?-?- 14w 4d 69.456 kg 115/79 absent 14 154 ac tive patient did not do lab. IUP 14w4, poor date, f/u MFM 10/03. patient had mfm 07/15/24. ob panel re ordered with NIPT and carrier screen. keep MFM appointment. sab precaution, light movement,no sab complaints 09/20/24 -?-?-?-?-?-?-?-?-?-?-?-?- 18w 4d 69.853 kg 106/64 absent unknown 18 18 active No oB complaints, fetus active, no VB,no LOF,no cramps. takes PNV, c/o back ache, AFP today. Ordered tylenol as needed for back pain, discuss comfort measure, keep MFM appointment 10/03 for anatomy scan, sab precaution AFP today. Ordered tylenol a s needed for back pain, discuss comfort measure, keep MFM appointment 10/03 for anatomy scan, sab precaution. patient needs oB panel [place] PIHL Calculator Estimated Delivery Date Method Current WG Current Estimate 02/17/25 Ultrasound #1 18w 4d Other Estimates 02/03/25 LMP (Uncertain) 20w 4d Notes Visit Date: 09/20/24 Last Updated by: Avelina Hickey, UNIQUE 19 yo . wrong dates. sono: 07/11: 9w2. edc 03/13/25. LMP 04/29/24. EDC 02/03/25. NIPT:neg/girl, SMA:neg, CF- Office Procedures OB Clinic LOC & Office Proc's Nursing/Assessment Patient Status: Established Patient OB Clinic Nursing Assessment: Medication Reconciliation, Update PMH in EMR and Vital Signs OB Clinic Coordination of Care: Complex Care and Chronic Disease 1-5, Consent,records obtained, informed consent, Education Simp Pt/Fam and Staff clarify orders Special Needs: Heart tones Established Patient Charge Established Patient Point Assignment: 115 Established Patient Point Charge: EP Level 3 (80-115) Assessment & Plan Diagnosis / Problem List (1) Encounter for supervision of normal first , second trimester: Status: Acute Plan tylenol 325 2 tabs q 6hr PRN#60. AFP today. [facility] appointment 10/03/24. patient needs ob panel nv, hydrate, discuss sab precaution. rtc 4 w obc Additional Plan Follow Up: 4 Weeks (obc)
== END 2024-09-20 12:11 | disposition home or self-care (01) ==
LOC: HODSOBC 10:27
PROVIDERS: Supervising Provider Advanced Practice Midwife; Visit Provider Advanced Practice Midwife
DX: Z34.82 Encounter for supervision of other normal pregnancy, second trimester (principal); Z3A.18 18 weeks gestation of pregnancy; Z88.0 Allergy status to penicillin
CPT/HCPCS: 99213; G0463

== ENCOUNTER 2024-10-23 08:51 | Outpatient (AMB) | payer MEDICAID, SELFPAY ==
[2024-10-23 08:58] VITALS: BP 122/77; PULSE 101; RESP 17; TEMP 36.6; O2SAT 98; BMI 30.2
--- NOTE | 2024-10-23 08:58 | OBCLNT_ITS ---
Vital Signs 10/23/24 08:58 Height 1.55 m Height Method Measured Weight 72.575 kg Weight Measurement Method Standing Scale BMI 30.2 BP 122/77 Blood Pressure Source Automatic Cuff Blood Pressure Location Right Upper Arm Position Sitting Respiration 17 Pulse 101 H Pulse Source Monitor Temp 97.9 F Temp Source Temporal Artery Scan Pulse Oximetry (%) 98 Oxygen Delivery Method Room Air Allergies/Home Meds Allergies & Medications Allergies Penicillins Allergy (Severe, Verified 10/23/24 08:58) Hives Medication Reconciliation vits no.124-ferrous fum 27 mg iron-folic acid 800 mcg tablet ( Vitamin) 1 tab PO QDAY 90 days #90 tabs 07/25/24 [Rx Confirmed 10/23/24] vits no.126-ferrous fum 28 mg iron-folic acid 800 mcg tablet (Classic ) 0.126 - 28 tab PO DAILY 30 days #60 tabs 08/23/24 [Rx Confirmed 10/23/24] acetaminophen 325 mg tablet (Tylenol) 325 mg PO QID PRN pain #60 tabs 09/20/24 [Rx Confirmed 10/23/24] clotrimazole 2 % vaginal cream (Gyne-Lotrimin) 1 appful vaginal QHS vaginitis 7 days #21 grams 10/23/24 [Rx] vitamin-ferrous fumarate 28 mg iron-folic acid 800 mcg tablet ( Vitamins with Minerals) 1 tab PO QDAY #60 tabs 10/23/24 [Rx] Intake Visit Data Collection New Patient or Established: Established Patient (seen at [facility] within 3 years) Reason for Visit:: C Consent obtained for Telemed Visit: No Seen by Clinical Staff ONLY (RN/MA): No Stamp Mounter Required: No Do You Feel Safe at Home: Yes Authorities Contacted: N/A PCP or OBGYN visit in last 3 months: Yes Date of Last PCP or OBGYN visit: 09/20/24 Hx Now: Yes Are you currently on any form of Control: No Pain Present Currently: No Pain Scale Used: Gonzalez-Ram/Numerical Pain scale:: 0 Smoking Status Smoking Status: Never smoker Questionnaires Covid-19 Vaccine Questionnaire Has patient been vacinated for Covid-19 Have you been vacinated for Covid-19: No PHQ-9 PHQ-2 Over the last 2 weeks, how often have you been bothered by any of the following problems? 1. Little interest or pleasure in doing things: not at all PHQ-9 8. Moving or speaking so slowly that other people could have noticed? - Or the opposite - being so fidgety or restless that you have been moving around a lot more than usual: not at all Source: Developed by Drs. Vargas Landry, Lisa Javier, Hans Moeller and colleagues, with an educational ghassan from [employer]. 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 EDC was corrected to February 18, 2025 by a 9-week 2 ultrasound. Patient is 10 weeks today. She denies bleeding or cramping at this time. She reports nausea but wants to wait on medication to help with that. So I discussed comfort measures for nausea with patient dry diet small meals. I scheduled NT and anatomy scan with maternal- medicine. OB panel was ordered her NIPT and cystic fibrosis and spinal muscular atrophy were also ordered. Discussed SAB precautions. [facility] And patient will be seen in 4 weeks. 08/23/24 -?-?-?-?-?-?-?-?-?-?-?-?- 14w 4d 69.456 kg 115/79 absent 14 154 ac tive patient did not do lab. IUP 14w4, poor date, f/u MFM 10/03. patient had mfm 07/15/24. ob panel re ordered with NIPT and carrier screen. keep MFM appointment. sab precaution, light movement,no sab complaints 09/20/24 -?-?-?-?-?-?-?-?-?-?-?-?- 18w 4d 69.853 kg 106/64 absent unknown 18 18 active No oB complaints, fetus active, no VB,no LOF,no cramps. takes PNV, c/o back ache, AFP today. Ordered tylenol as needed for back pain, discuss comfort measure, keep MFM appointment 10/03 for anatomy scan, sab precaution AFP today. Ordered tylenol a s needed for back pain, discuss comfort measure, keep MFM appointment 10/03 for anatomy scan, sab precaution. patient needs oB panel [place] 10/23/24 -?-?-?-?-?-?--?-?-?-?-?-?- 23w 2d 72.575 kg 122/77 absent unknown 23 135 active fetus active. MFM appointment 11/09/24. c/o vaginal discharge and labial swelling. denies leaking or bleeding, no cramps OB panel with 3rd tri lab today. comfort measure for vaginitis, gynelotrimin x 7, nuswab plus. ptl precaution, rtc 4 week PHIL Calculator Estimated Delivery Date Method Current WG Current Estimate 02/17/25 Ultrasound #1 23w 2d Other Estimates 02/03/25 LMP (Uncertain) 25w 2d Notes Visit Date: 09/20/24 Last Updated by: Avelina Hickey CNM 19 yo . wrong dates. sono: 07/11: 9w2. edc 03/13/25. LMP 04/29/24. EDC 02/03/25. NIPT:neg/girl, SMA:neg, CF- Office Procedures OB Clinic LOC & Office Proc's Nursing/Assessment Patient Status: Established Patient OB Clinic Nursing Assessment: Medication Reconciliation, Update PMH in EMR and Vital Signs OB Clinic Coordination of Care: Complex Care and Chronic Disease 1-5, Consent,records obtained, informed consent, Education Simp Pt/Fam and Staff clarify orders Special Needs: Heart tones Established Patient Charge Established Patient Point Assignment: 115 Established Patient Point Charge: EP Level 3 (80-115) Assessment & Plan Diagnosis / Problem List (1) Encounter for care in third trimester of first : Status: Acute Plan refill PNV, gynelotrimin x 7, nuswab plus, discuss PTL precaution and comfort measure for vaginitis, hydrate.rtc 4 week Additional Plan Follow Up: 4 Weeks (OBC)
== END 2024-10-23 09:13 | disposition home or self-care (01) ==
LOC: HODSOBC 08:51
PROVIDERS: Supervising Provider Advanced Practice Midwife; Visit Provider Advanced Practice Midwife
DX: O09.892 Supervision of other high risk pregnancies, second trimester (principal); O23.592 Infection of other part of genital tract in pregnancy, second trimester; N76.0 Acute vaginitis; Z3A.23 23 weeks gestation of pregnancy
CPT/HCPCS: 99213; G0463

== ENCOUNTER 2024-11-20 10:12 | Outpatient (AMB) | payer MEDICAID, SELFPAY ==
[2024-11-20 10:20] VITALS: BP 116/75; PULSE 96; RESP 17; TEMP 36.5; O2SAT 98; BMI 31.4
--- NOTE | 2024-11-20 10:20 | OBCLNT_ITS ---
Vital Signs 11/20/24 10:20 Height 1.55 m Height Method Measured Weight 75.41 kg Weight Measurement Method Standing Scale BMI 31.4 BP 116/75 Blood Pressure Source Automatic Cuff Blood Pressure Location Right Upper Arm Position Sitting Respiration 17 Pulse 96 Pulse Source Monitor Temp 97.7 F Temp Source Temporal Artery Scan Pulse Oximetry (%) 98 Oxygen Delivery Method Room Air Allergies/Home Meds Allergies & Medications Allergies Penicillins Allergy (Severe, Verified 11/20/24 10:21) Hives Medication Reconciliation vits no.124-ferrous fum 27 mg iron-folic acid 800 mcg tablet ( Vitamin) 1 tab PO QDAY 90 days #90 tabs 07/25/24 [Rx Confirmed 11/20/24] vits no.126-ferrous fum 28 mg iron-folic acid 800 mcg tablet (Classic ) 0.126 - 28 tab PO DAILY 30 days #60 tabs 08/23/24 [Rx Confirmed 11/20/24] acetaminophen 325 mg tablet (Tylenol) 325 mg PO QID PRN pain #60 tabs 09/20/24 [Rx Confirmed 11/20/24] clotrimazole 2 % vaginal cream (Gyne-Lotrimin) 1 appful vaginal QHS vaginitis 7 days #21 grams 10/23/24 [Rx Confirmed 11/20/24] vitamin-ferrous fumarate 28 mg iron-folic acid 800 mcg tablet ( Vitamins with Minerals) 1 tab PO QDAY #60 tabs 10/23/24 [Rx Confirmed 11/20/24] Intake Visit Data Collection New Patient or Established: Established Patient (seen at [facility] within 3 years) Reason for Visit:: OBC Consent obtained for Telemed Visit: No Seen by Clinical Staff ONLY (RN/MA): No 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 1. Little interest or pleasure in doing things: not at all PHQ-9 3. Trouble falling or staying asleep, or sleeping too much: Not at all 4. Feeling tired or having little energy: Not at all 5. Poor appetite or overeating: Not at all 6. Feeling bad about yourself - or that you are a failure or have let yourself or your family down: Not at all 7. Trouble concentrating on things, such as reading the newspaper or watching television: Not at all 8. Moving or speaking so slowly that other people could have noticed? - Or the opposite - being so fidgety or restless that you have been moving around a lot more than usual: not at all 9. Thoughts that you would be better off or of hurting yourself in some way: Not at all If you checked off any problems, how difficult have these problems made it for you to do your work, take care of things at home, or get along with other people?: not difficult at all Source: Developed by Drs. Vargas Landry, Lisa Javier, Hans Moeller and colleagues, with an educational ghassan from [employer]. 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 EDC was corrected to February 18, 2025 by a 9-week 2 ultrasound. Patient is 10 weeks today. She denies bleeding or cramping at this time. She reports nausea but wants to wait on medication to help with that. So I discussed comfort measures for nausea with patient dry diet small meals. I scheduled NT and anatomy scan with maternal- medicine. OB panel was ordered her NIPT and cystic fibrosis and spinal muscular atrophy were also ordered. Discussed SAB precautions. [facility] And patient will be seen in 4 weeks. 08/23/24 -?-?-?-?-?-?-?-?-?-?-?-?- 14w 4d 69.456 kg 115/79 absent 14 154 ac tive patient did not do lab. IUP 14w4, poor date, f/u MFM 10/03. patient had mfm 07/15/24. ob panel re ordered with NIPT and carrier screen. keep MFM appointment. sab precaution, light movement,no sab complaints 09/20/24 -?-?-?-?-?-?-?-?-?-?-?-?- 18w 4d 69.853 kg 106/64 absent unknown 18 18 active No oB complaints, fetus active, no VB,no LOF,no cramps. takes PNV, c/o back ache, AFP today. Ordered tylenol as needed for back pain, discuss comfort measure, keep MFM appointment 10/03 for anatomy scan, sab precaution AFP today. Ordered tylenol a s needed for back pain, discuss comfort measure, keep MFM appointment 10/03 for anatomy scan, sab precaution. patient needs oB panel NV 10/23/24 -?-?-?-?-?-?-?-?-?-?-?-?- 23w 2d 72.575 kg 122/77 absent unknown 23 135 active fetus active. MFM appointment 11/09/24. c/o vaginal discharge and labial swelling. denies leaking or bleeding, no cramps OB panel with 3rd tri lab today. comfort measure for vaginitis, gynelotrimin x 7, nuswab plus. ptl precaution, rtc 4 week 11/20/24 -?-?-?-?-?-?-?-?-?-?-?-?- 27w 2d 75.41 kg 116/75 absent unknown 26 135 active fetus active, denies VB,LOF.UC. f/u mfm: 12/10 discuss ptl precaution, hydrate. discuss diet and weight, keep appt: 12/10 PHIL Calculator Estimated Delivery Date Method Current WG Current Estimate 02/17/25 Ultrasound #1 27w 2d Other Estimates 02/03/25 LMP (Uncertain) 29w 2d Notes Visit Date: 11/20/24 Last Updated by: Avelina Hickey CNM 11/20/24: Corrected Dates: 1st OB sono: 07/17/24 IUP 9w2. EDC: 02/17/25. O+,abs-, rpr;;nr, rub imm, hbsag-, hiv-,hc-, GC/CT-. 1 hr gtt: normal Visit Date: 09/20/24 Last Updated by: Avelina Hickey CNM 19 yo . wrong dates. sono: 07/11: 9w2. edc 03/13/25. LMP 04/29/24. EDC 02/03/25. NIPT:neg/girl, SMA:neg, CF- Office Procedures OB Clinic LOC & Office Proc's Nursing/Assessment Patient Status: Established Patient OB Clinic Nursing Assessment: Medication Reconciliation, Update PMH in EMR and Vital Signs OB Clinic Coordination of Care: Complex Care and Chronic Disease 1-5, Consent,records obtained, informed consent and Education Simp Pt/Fam Special Needs: Heart tones Established Patient Charge Established Patient Point Assignment: 105 Established Patient Point Charge: EP Level 3 (80-115) Assessment & Plan Diagnosis / Problem List (1) Encounter for care in third trimester of first : Status: Acute Plan discuss ptl precaution, hydrate. keep appt 12/10/24, discuss diet and weight Additional Plan Follow Up: 4 Weeks (obc)
== END 2024-11-20 10:34 | disposition home or self-care (01) ==
LOC: HODSOBC 10:12
PROVIDERS: Supervising Provider Advanced Practice Midwife; Visit Provider Advanced Practice Midwife
DX: Z34.82 Encounter for supervision of other normal pregnancy, second trimester (principal); Z3A.27 27 weeks gestation of pregnancy
CPT/HCPCS: 99213; G0463

== ENCOUNTER 2024-12-11 11:01 | Outpatient (AMB) | payer MEDICAID, SELFPAY ==
[2024-12-11 11:08] VITALS: BP 119/78; PULSE 100; RESP 17; TEMP 36; O2SAT 96; BMI 32.1
--- NOTE | 2024-12-11 11:08 | OBCLNT_ITS ---
Vital Signs 12/11/24 11:08 Height 1.55 m Height Method Measured Weight 77.111 kg Weight Measurement Method Standing Scale BMI 32.1 BP 119/78 Blood Pressure Source Automatic Cuff Blood Pressure Location Right Upper Arm Position Sitting Respiration 17 Pulse 100 Pulse Source Monitor Temp 96.8 F Temp Source Temporal Artery Scan Pulse Oximetry (%) 96 Oxygen Delivery Method Room Air Allergies/Home Meds Allergies & Medications Allergies Penicillins Allergy (Severe, Verified 11/20/24 10:21) Hives Intake Visit Data Collection New Patient or Established: Established Patient (seen at [facility] within 3 years) Reason for Visit:: OBC Consent obtained for Telemed Visit: No Seen by Clinical Staff ONLY (RN/MA): No 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 1. Little interest or pleasure in doing things: not at all PHQ-9 8. Moving or speaking so slowly that other people could have noticed? - Or the opposite - being so fidgety or restless that you have been moving around a lot more than usual: not at all Source: Developed by Drs. Vargas Landry, Lisa Javier, Hans Moeller and colleagues, with an educational ghassan from [facility] EHR. 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 EDC was corrected to February 18, 2025 by a 9-week 2 ultrasound. Patient is 10 weeks today. She denies bleeding or cramping at this time. She reports nausea but wants to wait on medication to help with that. So I discussed comfort measures for nausea with patient dry diet small meals. I scheduled NT and anatomy scan with maternal- medicine. OB panel was ordered her NIPT and cystic fibrosis and spinal muscular atrophy were also ordered. Discussed SAB precautions. And [facility] And patient will be seen in 4 weeks. 08/23/24 -?-?-?-?-?-?-?-?-?-?-?-?- 14w 4d 69.456 kg 115/79 absent 14 154 ac tive patient did not do lab. IUP 14w4, poor date, f/u MFM 10/03. patient had mfm 07/15/24. ob panel re ordered with NIPT and carrier screen. keep MFM appointment. sab precaution, light movement,no sab complaints 09/20/24 -?-?-?-?-?-?-?-?-?-?-?-?- 18w 4d 69.853 kg 106/64 absent unknown 18 18 active No oB complaints, fetus active, no VB,no LOF,no cramps. takes PNV, c/o back ache, AFP today. Ordered tylenol as needed for back pain, discuss comfort measure, keep MFM appointment 10/03 for anatomy scan, sab precaution AFP today. Ordered tylenol a s needed for back pain, discuss comfort measure, keep MFM appointment 10/03 for anatomy scan, sab precaution. patient needs oB panel [place] 10/23/24 -?-?-?-?-?-?-?-?-?-?-?-?- 23w 2d 72.575 kg 122/77 absent unknown 23 135 active fetus active. MFM appointment 11/09/24. c/o vaginal discharge and labial swelling. denies leaking or bleeding, no cramps OB panel with 3rd tri lab today. comfort measure for vaginitis, gynelotrimin x 7, nuswab plus. ptl precaution, rtc 4 week 11/20/24 -?-?-?-?-?-?-?-?-?-?-?-?- 27w 2d 75.41 kg 116/75 absent unknown 26 135 active fetus active, denies VB,LOF.UC. f/u mfm: 12/10 discuss ptl precaution, hydrate. discuss diet and weight, keep appt: 12/1012/11/24 -?-?-?-?-?-?-?-?-?-?-?-?- 30w 2d 77.111 kg 119/78 absent unknown 30 156 active fetus active per pt, c/o low back pain anf thigh pain. denies leaking,bleeding and uc TDAP NV, discuss ptl precaution TDAP NV, discuss ptl precaut ion. reviewed. comfot measure for back and leg pain. increase fluid, ptl precaution, rtc 2 week obc PHIL Calculator Estimated Delivery Date Method Current WG Current Estimate 02/17/25 Ultrasound #1 30w 2d Other Estimates 02/03/25 LMP (Uncertain) 32w 2d 02/17/25 Ultrasound #2 30w 2d Notes Visit Date: 12/11/24 Last Updated by: Avelina Hickey CNM [facility] 11/09: EFW:68% Visit Date: 11/20/24 Last Updated by: Avelina Hickey CNM 11/20/24: Corrected Dates: 1st OB sono: 07/17/24 IUP 9w2. EDC: 02/17/25. O+,abs-, rpr;;nr, rub imm, hbsag-, hiv-,hc-, GC/CT-. 1 hr gtt: normal Visit Date: 09/20/24 Last Updated by: Avelina Hickey CNM 19 yo . wrong dates. sono: 07/11: 9w2. edc 03/13/25. LMP 04/29/24. EDC 02/03/25. NIPT:neg/girl, SMA:neg, CF- Office Procedures OB Clinic LOC & Office Proc's Nursing/Assessment Patient Status: Established Patient OB Clinic Nursing Assessment: Medication Reconciliation, Update PMH in EMR and Vital Signs OB Clinic Coordination of Care: Complex Care and Chronic Disease 1-5, Consent,records obtained, informed consent and Education Simp Pt/Fam Special Needs: Heart tones Established Patient Charge Established Patient Point Assignment: 105 Established Patient Point Charge: EP Level 3 (80-115) Assessment & Plan Diagnosis / Problem List (1) Encounter for care in third trimester of first : Status: Acute Plan Tdap next visit. Discussed labor precautions. Reviewed sono and third trimester labs. Encouraged increase fluids and patient to return in 2 weeks OB check Additional Plan Follow Up: 2 Weeks (obc)
== END 2024-12-11 12:00 | disposition home or self-care (01) ==
LOC: HODSOBC 11:01
PROVIDERS: Supervising Provider Advanced Practice Midwife; Visit Provider Advanced Practice Midwife
DX: Z34.83 Encounter for supervision of other normal pregnancy, third trimester (principal); Z3A.30 30 weeks gestation of pregnancy; Z88.0 Allergy status to penicillin
CPT/HCPCS: 99213; G0463

== ENCOUNTER 2025-01-23 11:30 | Outpatient (AMB) | payer MEDICAID, SELFPAY ==
--- NOTE | 2025-01-23 11:33 | OBCLNT_ITS ---
Vital Signs 01/23/25 11:35 Height 1.55 m Height Method Stated Weight 80.399 kg Weight Measurement Method Standing Scale BMI 33.5 BP 121/78 Blood Pressure Source Automatic Cuff Blood Pressure Location Left Upper Arm Position Sitting Respiration 18 Pulse 102 H Pulse Source Monitor Temp 98.8 F Temp Source Oral Pulse Oximetry (%) 98 Oxygen Delivery Method Room Air Allergies/Home Meds Allergies & Medications Allergies Penicillins Allergy (Severe, Verified 01/23/25 11:33) Hives Medication Reconciliation vits no.124-ferrous fum 27 mg iron-folic acid 800 mcg tablet ( Vitamin) 1 tab PO QDAY 90 days #90 tabs 07/25/24 [Rx Confirmed 01/23/25] vits no.126-ferrous fum 28 mg iron-folic acid 800 mcg tablet (Classic ) 0.126 - 28 tab PO DAILY 30 days #60 tabs 08/23/24 [Rx Confirmed 01/23/25] acetaminophen 325 mg tablet (Tylenol) 325 mg PO QID PRN pain #60 tabs 09/20/24 [Rx Confirmed 01/23/25] clotrimazole 2 % vaginal cream (Gyne-Lotrimin) 1 appful vaginal QHS vaginitis 7 days #21 grams 10/23/24 [Rx Confirmed 01/23/25] vitamin-ferrous fumarate 28 mg iron-folic acid 800 mcg tablet ( Vitamins with Minerals) 1 tab PO QDAY #60 tabs 10/23/24 [Rx Confirmed 01/23/25] Intake Visit Data Collection New Patient or Established: Established Patient (seen at [facility] within 3 years) Reason for Visit:: OBC Seen by Clinical Staff ONLY (RN/MA): No Electrostatic Painter Required: No Do You Feel Safe at Home: Yes Authorities Contacted: N/A PCP or OBGYN visit in last 3 months: Yes Date of Last PCP or OBGYN visit: 11/20/24 Hx Now: Yes Are you currently on any form of Control: No Pain Present Currently: No Pain Scale Used: Gonzalez-Ram/Numerical Pain scale:: 0 Smoking Status Smoking Status: Never smoker Questionnaires Covid-19 Vaccine Questionnaire Has patient been vacinated for Covid-19 Have you been vacinated for Covid-19: No PHQ-9 PHQ-2 Over the last 2 weeks, how often have you been bothered by any of the following problems? 1. Little interest or pleasure in doing things: not at all 2. Feeling down, depressed, or hopeless: not at all Total score: 0 PHQ-9 3. Trouble falling or staying asleep, or sleeping too much: Not at all 4. Feeling tired or having little energy: Not at all 5. Poor appetite or overeating: Not at all 6. Feeling bad about yourself - or that you are a failure or have let yourself or your family down: Not at all 7. Trouble concentrating on things, such as reading the newspaper or watching television: Not at all 8. Moving or speaking so slowly that other people could have noticed? - Or the opposite - being so fidgety or restless that you have been moving around a lot more than usual: not at all 9. Thoughts that you would be better off or of hurting yourself in some way: Not at all Total score: 0 If you checked off any problems, how difficult have these problems made it for you to do your work, take care of things at home, or get along with other people?: not difficult at all Source: Developed by Drs. Vargas Landry, Lisa Javier, Hans Moeller and colleagues, with an educational ghassan from [employer]. 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 EDC was corrected to February 18, 2025 by a 9-week 2 ultrasound. Patient is 10 weeks today. She denies bleeding or cramping at this time. She reports nausea but wants to wait on medication to help with that. So I discussed comfort measures for nausea with patient dry diet small meals. I scheduled NT and anatomy scan with maternal- medicine. OB panel was ordered her NIPT and cystic fibrosis and spinal muscular atrophy were also ordered. Discussed SAB precautions. [facility] And patient will be seen in 4 weeks. 08/23/24 -?-?-?-?-?-?-?-?-?-?-?-?- 14w 4d 69.456 kg 115/79 absent 14 154 ac tive patient did not do lab. IUP 14w4, poor date, f/u MFM 10/03. patient had mfm 07/15/24. ob panel re ordered with NIPT and carrier screen. keep MFM appointment. sab precaution, light movement,no sab complaints 09/20/24 -?-?-?-?-?-?-?-?-?-?-?-?- 18w 4d 69.853 kg 106/64 absent unknown 18 18 active No oB complaints, fetus active, no VB,no LOF,no cramps. takes PNV, c/o back ache, AFP today. Ordered tylenol as needed for back pain, discuss comfort measure, keep MFM appointment 10/03 for anatomy scan, sab precaution AFP today. Ordered tylenol a s needed for back pain, discuss comfort measure, keep MFM appointment 10/03 for anatomy scan, sab precaution. patient needs oB eugene el [place] 10/23/24 -?-?-?-?-?-?-?-?-?-?-?-?- 23w 2d 72.575 kg 122/77 absent unknown 23 135 active fetus active. MFM appointment 11/09/24. c/o vaginal discharge and labial swelling. denies leaking or bleeding, no cramps OB panel with 3rd tri lab today. comfort measure for vaginitis, gynelotrimin x 7, nuswab plus. ptl precaution, rtc 4 week 11/20/24 -?-?-?-?-?-?-?-?-?-?-?-?- 27w 2d 75.41 kg 116/75 absent unknown 26 135 active fetus active, denies VB,LOF.UC. f/u mfm: 12/10 discuss ptl precaution, hydrate. discuss diet and weight, keep appt: 12/1012/11/24 -?-?-?-?-?-?-?-?-?-?-?-?- 30w 2d 77.111 kg 119/78 absent unknown 30 156 active fetus active per pt, c/o low back pain anf thigh pain. denies leaking,bleeding and uc TDAP NV, discuss ptl precaution TDAP NV, discuss ptl precaut ion. reviewed. comfot measure for back and leg pain. increase fluid, ptl precaution, rtc 2 week obc PHIL Calculator Estimated Delivery Date Method Current WG Current Estimate 02/17/25 Ultrasound #1 36w 3d Other Estimates 02/03/25 LMP (Uncertain) 38w 3d 02/17/25 Ultrasound #2 36w 3d Notes Visit Date: 12/11/24 Last Updated by: Avelina Hickey CNM [facility] 11/09: EFW:68% Visit Date: 11/20/24 Last Updated by: Avelina Hickey CNM 11/20/24: Corrected Dates: OB sono: 07/17/24 IUP 9w2. EDC: 02/17/25. O+,abs-, rpr;;nr, rub imm, hbsag-, hiv-,hc-, GC/CT-. 1 hr gtt: normal Visit Date: 09/20/24 Last Updated by: Avelina Hickey CNM 19 yo . wrong dates. sono: 07/11: 9w2. edc 03/13/25. LMP 04/29/24. EDC 02/03/25. NIPT:neg/girl, SMA:neg, CF- Office Procedures OBC Clinic LOC & Office Proc's Nursing/Assessment Patient Status: Established Patient OB Clinic Nursing Assessment: Medication Reconciliation, Update PMH in EMR and Vital Signs OB Clinic Coordination of Care: Education Complex Pt/Fam, Consent,records obtained, informed consent, Lab and Imaging orders, Results/Orders obtained and Staff clarify orders Special Needs: Heart tones Miscellaneous Interventions: Pelvic Comp w/OB cult Established Patient Charge Established Patient Point Assignment: 130 Established Patient Point Charge: EP Level 4 (120-155) Assessment & Plan Diagnosis / Problem List (1) Encounter for care in third trimester of first : Status: Acute Plan GBS today. Discussed labor precautions. Discussed kick count twice a day. Reviewed parameters. Discussed danger signs symptoms ER precautions. Increase fluids. Return in a week OB check
[2025-01-23 11:35] VITALS: BP 121/78; PULSE 102; RESP 18; TEMP 37.1; O2SAT 98; BMI 33.5
== END 2025-01-23 11:50 | disposition home or self-care (01) ==
LOC: HODSOBC 11:30
PROVIDERS: Supervising Provider Advanced Practice Midwife; Visit Provider Advanced Practice Midwife
DX: Z34.83 Encounter for supervision of other normal pregnancy, third trimester (principal); Z3A.36 36 weeks gestation of pregnancy; Z36.85 Encounter for antenatal screening for Streptococcus B; Z88.0 Allergy status to penicillin
CPT/HCPCS: 99214; G0463

== ENCOUNTER 2025-01-29 10:31 | Outpatient (AMB) | payer MEDICAID, SELFPAY ==
[2025-01-29 10:40] VITALS: BP 119/78; PULSE 106; RESP 17; TEMP 36.4; O2SAT 97; BMI 33.3
--- NOTE | 2025-01-29 10:40 | OBCLNT_ITS ---
Vital Signs 01/29/25 10:40 Height 1.55 m Height Method Stated Weight 79.946 kg Weight Measurement Method Standing Scale BMI 33.3 BP 119/78 Blood Pressure Source Automatic Cuff Blood Pressure Location Right Upper Arm Position Sitting Respiration 17 Pulse 106 H Pulse Source Monitor Temp 97.6 F Temp Source Temporal Artery Scan Pulse Oximetry (%) 97 Oxygen Delivery Method Room Air Allergies/Home Meds Allergies & Medications Allergies Penicillins Allergy (Severe, Verified 01/29/25 10:42) Hives Medication Reconciliation vitamin-ferrous fumarate 28 mg iron-folic acid 800 mcg tablet ( Vitamins with Minerals) 1 tab PO QDAY #60 tabs 10/23/24 [Rx Confirmed 01/29/25] Intake Visit Data Collection New Patient or Established: Established Patient (seen at [facility] within 3 years) Reason for Visit:: OBC Seen by Clinical Staff ONLY (RN/MA): No Director Hr Communications Required: No Do You Feel Safe at Home: Yes Authorities Contacted: N/A PCP or OBGYN visit in last 3 months: Yes Date of Last PCP or OBGYN visit: 01/23/25 Hx Now: Yes Are you currently on any form of Control: No Pain Present Currently: Yes Pain Location: Unable to identify (VAGINAL DISCOMFORT) Pain Scale Used: Gonzalez-Ram/Numerical Pain scale:: 7 Smoking Status Smoking Status: Never smoker Questionnaires Covid-19 Vaccine Questionnaire Has patient been vacinated for Covid-19 Have you been vacinated for Covid-19: No PHQ-9 PHQ-2 Over the last 2 weeks, how often have you been bothered by any of the following problems? 1. Little interest or pleasure in doing things: not at all 2. Feeling down, depressed, or hopeless: not at all Total score: 0 PHQ-9 3. Trouble falling or staying asleep, or sleeping too much: Not at all 4. Feeling tired or having little energy: Not at all 5. Poor appetite or overeating: Not at all 6. Feeling bad about yourself - or that you are a failure or have let yourself or your family down: Not at all 7. Trouble concentrating on things, such as reading the newspaper or watching television: Not at all 8. Moving or speaking so slowly that other people could have noticed? - Or the opposite - being so fidgety or restless that you have been moving around a lot more than usual: not at all 9. Thoughts that you would be better off or of hurting yourself in some way: Not at all Total score: 0 If you checked off any problems, how difficult have these problems made it for you to do your work, take care of things at home, or get along with other people?: not difficult at all Source: Developed by Drs. Vargas Landry, Lisa Javier, Hans Moeller and colleagues, with an educational ghassan from [employer] 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 EDC was corrected to February 18, 2025 by a 9-week 2 ultrasound. Patient is 10 weeks today. She denies bleeding or cramping at this time. She reports nausea but wants to wait on medication to help with that. So I discussed comfort measures for nausea with patient dry diet small meals. I scheduled NT and anatomy scan with maternal- medicine. OB panel was ordered her NIPT and cystic fibrosis and spinal muscular atrophy were also ordered. Discussed SAB precautions. [facility] And patient will be seen in 4 weeks. 08/23/24 -?-?-?-?-?-?-?-?-?-?-?-?- 14w 4d 69.456 kg 115/79 absent 14 154 ac tive patient did not do lab. IUP 14w4, poor date, f/u MFM 10/03. patient had mfm 07/15/24. ob panel re ordered with NIPT and carrier screen. keep MFM appointment. sab precaution, light m ovement,no sab complaints 09/20/24 -?-?-?-?-?-?-?-?-?-?-?-?- 18w 4d 69.853 kg 106/64 absent unknown 18 18 active No oB complaints, fetus active, no VB,no LOF,no cramps. takes PNV, c/o back ache, AFP today. Ordered tylenol as needed for back pain, discuss comfort measure, keep MFM appointment 10/03 for anatomy scan, sab precaution AFP today. Ordered tylenol a s needed for back pain, discuss comfort measure, keep MFM appointment 10/03 for anatomy scan, sab precaution. patient needs oB panel [place] 10/23/24 -?-?-?-?-?-?-?-?-?-?-?-?- 23w 2d 72.575 kg 122/77 absent unknown 23 135 active fetus active. MFM appointment 11/09/24. c/o vaginal discharge and labial swelling. denies leaking or bleeding, no cramps OB panel with 3rd tri lab today. comfort measure for vaginitis, gynelotrimin x 7, nuswab plus. ptl precaution, rtc 4 week 11/20/24 -?-?-?-?-?-?-?-?-?-?-?-?- 27w 2d 75.41 kg 116/75 absent unknown 26 135 active fetus active, denies VB,LOF.UC. f/u mfm: 12/10 discuss ptl precaution, hydrate. discuss diet and weig ht, keep appt: 12/1012/11/24 -?-?-?-?-?-?-?-?-?-?-?-?- 30w 2d 77.111 kg 119/78 absent unknown 30 156 active fetus active per pt, c/o low back pain anf thigh pain. denies leaking,bleeding and uc TDAP NV, discuss ptl precaution TDAP NV, discuss ptl precaut ion. reviewed. comfot measure for back and leg pain. increase fluid, ptl precaution, rtc 2 week obc 01/23/25 -?-?-?-?-?-?-?-?-?-?-?-?- 36w 3d 80.399 kg 121/78 absent cephalic 35 156 active Declined Tdap. Denies leaking, bleeding, contractions. Reports good movement. Complains of third trimester discomfort GB S today. Reviewed labor precautions and kick count. Increase fluids. Continue prenatals. Discussed danger signs symptoms return in a week for OB check 01/29/25 -?-?-?-?-?-?-?-?-?-?-?-?- 37w 2d 79.946 kg 119/78 occasional cephalic 37 155 active fetus active, deneis UC, leaking, bleeding dis cuss fkc bid, discuss labor precaution, fkc bid and er precaution, rtc 1 week PHIL Calculator Estimated Delivery Date Method Current WG Current Estimate 02/17/25 Ultrasound #1 37w 2d Other Estimates 02/03/25 LMP (Uncertain) 39w 2d 02/17/25 Ultrasound #2 37w 2d 02/17/25 Manual 37w 2d final phil Notes Visit Date: 01/29/25 Last Updated by: Avelina Hickey CNM GBS- Visit Date: 12/11/24 Last Updated by: Avelina Hickey CNM [facility] 11/09: EFW:68% Visit Date: 11/20/24 Last Updated by: Avelina Hickey CNM 11/20/24: Corrected Dates: 1st OB sono: 07/17/24 IUP 9w2. EDC: 02/17/25. O+,abs-, rpr;;nr, rub imm, hbsag-, hiv-,hc-, GC/CT-. 1 hr gtt: normal Visit Date: 09/20/24 Last Updated by: Avelina Hickey CNM 19 yo . wrong dates. sono: 07/11: 9w2. edc 03/13/25. LMP 04/29/24. EDC 02/03/25. NIPT:neg/girl, SMA:neg, CF- Office Procedures OBC Clinic LOC & Office Proc's Nursing/Assessment Patient Status: Established Patient OB Clinic Nursing Assessment: Medication Reconciliation, Update PMH in EMR and Vital Signs OB Clinic Coordination of Care: Complex Care and Chronic Disease 1-5, Education Complex Pt/Fam, Consent,records obtained, informed consent, Results/Orders obtained and Staff clarify orders Special Needs: Heart tones Established Patient Charge Established Patient Point Assignment: 125 Established Patient Point Charge: EP Level 4 (120-155) Assessment & Plan Diagnosis / Problem List (1) Encounter for care in third trimester of first : Status: Acute Plan Discussed labor precautions. Kick count twice a day. Discussed ER precautions and danger signs symptoms. Continue prenatals and increase fluids. Return in a week OB check Additional Plan Follow Up: 1 Week (obc)
== END 2025-01-29 10:59 | disposition home or self-care (01) ==
LOC: HODSOBC 10:31
PROVIDERS: Supervising Provider Advanced Practice Midwife; Visit Provider Advanced Practice Midwife
DX: Z34.83 Encounter for supervision of other normal pregnancy, third trimester (principal); Z3A.37 37 weeks gestation of pregnancy
CPT/HCPCS: 99214; G0463

== ENCOUNTER 2025-02-07 09:33 | Outpatient (AMB) | payer MEDICAID, SELFPAY ==
[2025-02-07 09:38] VITALS: BP 135/84; PULSE 122; RESP 18; TEMP 36.2; O2SAT 98; BMI 33.9
--- NOTE | 2025-02-07 09:38 | OBCLNT_ITS ---
Vital Signs 02/07/25 09:38 Height 1.55 m Height Method Stated Weight 81.448 kg Weight Measurement Method Standing Scale BMI 33.9 BP 135/84 H Blood Pressure Source Automatic Cuff Blood Pressure Location Left Upper Arm Position Sitting Respiration 18 Pulse 122 H Pulse Source Monitor Temp 97.2 F Temp Source Oral Pulse Oximetry (%) 98 Oxygen Delivery Method Room Air Allergies/Home Meds Allergies & Medications Allergies Penicillins Allergy (Severe, Verified 02/07/25 09:39) Hives Medication Reconciliation vitamin-ferrous fumarate 28 mg iron-folic acid 800 mcg tablet ( Vitamins with Minerals) 1 tab PO QDAY #60 tabs 10/23/24 [Rx Confirmed 02/07/25] Intake Visit Data Collection New Patient or Established: Established Patient (seen at [facility] within 3 years) Reason for Visit:: OBC Seen by Clinical Staff ONLY (RN/MA): No Teaching Supervisor Required: No Do You Feel Safe at Home: Yes Authorities Contacted: N/A PCP or OBGYN visit in last 3 months: Yes Date of Last PCP or OBGYN visit: 01/29/25 Hx Now: Yes Are you currently on any form of Control: No Pain Present Currently: No Pain Scale Used: Gonzalez-Ram/Numerical Pain scale:: 0 Smoking Status Smoking Status: Never smoker Immunizations Flu Vaccine in the Last 12 Months: No Flu Vaccine Exclusion Criteria: No Exclusion Criteria Questionnaires Covid-19 Vaccine Questionnaire Has patient been vacinated for Covid-19 Have you been vacinated for Covid-19: Yes PHQ-9 PHQ-2 Over the last 2 weeks, how often have you been bothered by any of the following problems? 1. Little interest or pleasure in doing things: not at all 2. Feeling down, depressed, or hopeless: not at all Total score: 0 PHQ-9 3. Trouble falling or staying asleep, or sleeping too much: Not at all 4. Feeling tired or having little energy: Not at all 5. Poor appetite or overeating: Not at all 6. Feeling bad about yourself - or that you are a failure or have let yourself or your family down: Not at all 7. Trouble concentrating on things, such as reading the newspaper or watching television: Not at all 8. Moving or speaking so slowly that other people could have noticed? - Or the opposite - being so fidgety or restless that you have been moving around a lot more than usual: not at all 9. Thoughts that you would be better off or of hurting yourself in some way: Not at all Total score: 0 If you checked off any problems, how difficult have these problems made it for you to do your work, take care of things at home, or get along with other people?: not difficult at all Source: Developed by Drs. Vargas Landry, Lisa Javier, Hans Moeller and colleagues, with an educational ghassan from [employer]. 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 EDC was corrected to February 18, 2025 by a 9-week 2 ultrasound. Patient is 10 weeks today. She denies bleeding or cramping at this time. She reports nausea but wants to wait on medication to help with that. So I discussed comfort measures for nausea with patient dry diet small meals. I scheduled NT and anatomy scan with maternal- medicine. OB panel was ordered her NIPT and cystic fibrosis and spinal muscular atrophy were also ordered. Discussed SAB precautions. And [facility] vitamins [facility]. And patient will be seen in 4 weeks. 08/23/24 -?-?-?-?-?-?-?-?-?-?-?-?- 14w 4d 69.456 kg 115/79 absent 14 154 ac tive patient did not do lab. IUP 14w4, poor date, f/u MFM 10/03. patient had mfm 07/15/24. ob panel re ordered with NIPT and carrier screen. keep MFM appointment. sab precaution, light movement,no sab complaints 09/20/24 -?-?-?-?-?-?-?-?-?-?-?-?- 18w 4d 69.853 kg 106/64 absent unknown 18 18 active No oB complaints, fetus active, no VB,no LOF,no cramps. takes PNV, c/o back ache, AFP today. Ordered tylenol as needed for back pain, discuss comfort measure, keep MFM appointment 10/03 for anatomy scan, sab precaution AFP today. Ordered tylenol a s needed for back pain, discuss comfort measure, keep MFM appointment 10/03 for anatomy scan, sab precaution. patient needs oB panel NV 10/23/24 -?-?-?-?-?-?-?-?-?-?-?-?- 23w 2d 72.575 kg 122/77 absent unknown 23 135 active fetus active. MFM appointment 11/09/24. c/o vaginal discharge and labial swelling. denies leaking or bleeding, no cramps OB panel with 3rd tri lab today. comfort measure for vaginitis, gynelotrimin x 7, nuswab plus. ptl precaution, rtc 4 week 11/20/24 -?-?-?-?-?-?-?-?-?-?-?-?- 27w 2d 75.41 kg 116/75 absent unknown 26 135 active fetus active, denies VB,LOF.UC. f/u mfm: 12/10 discuss ptl precaution, hydrate. discuss diet and weight, keep appt: 12/1012/11/24 -?-?-?-?-?-?-?-?-?-?-?-?- 30w 2d 77.111 kg 119/78 absent unknown 30 156 active fetus active per pt, c/o low back pain anf thigh pain. denies leaking,bleeding and uc TDAP NV, discuss ptl precaution TDAP NV, discuss ptl precaut ion. reviewed. comfot measure for back and leg pain. increase fluid, ptl precaution, rtc 2 week obc 01/23/25 -?-?-?-?-?-?-?-?-?-?-?-?- 36w 3d 80.399 kg 121/78 absent cephalic 35 156 active Declined Tdap. Denies leaking, bleeding, contractions. Reports good movement. Complains of third trimester discomfort GB S today. Reviewed labor precautions and kick count. Increase fluids. Continue prenatals. Discussed danger signs symptoms return in a week for OB check 01/29/25 -?-?-?-?-?-?-?-?-?-?-?-?- 37w 2d 79.946 kg 119/78 occasional cephalic 37 155 active fetus active, deneis UC, leaking, bleeding dis cuss fkc bid, discuss labor precaution, fkc bid and er precaution, rtc 1 week PHIL Calculator Estimated Delivery Date Method Current WG Current Estimate 02/17/25 Ultrasound #1 38w 4d Other Estimates 02/03/25 LMP (Uncertain) 40w 4d 02/17/25 Ultrasound #2 38w 4d 02/17/25 Manual 38w 4d final phil Notes Visit Date: 01/29/25 Last Updated by: Avelina Hickey CNM GBS- Visit Date: 12/11/24 Last Updated by: Avelina Hickey CNM [facility] 11/09: EFW:68% Visit Date: 11/20/24 Last Updated by: Avelina Hickey CNM 11/20/24: Corrected Dates: 1st OB sono: 07/17/24 IUP 9w2. EDC: 02/17/25. O+,abs-, rpr;;nr, rub imm, hbsag-, hiv-,hc-, GC/CT-. 1 hr gtt: normal Visit Date: 09/20/24 Last Updated by: Avelina Hickey CNM 19 yo . wrong dates. sono: 07/11: 9w2. edc 03/13/25. LMP 04/29/24. EDC 02/03/25. NIPT:neg/girl, SMA:neg, CF- Office Procedures OBC Clinic LOC & Office Proc's Nursing/Assessment Patient Status: Established Patient OB Clinic Nursing Assessment: Medication Reconciliation, Update PMH in EMR and Vital Signs OB Clinic Coordination of Care: Consent,records obtained, informed consent, Education Simp Pt/Fam, Lab and Imaging orders and Staff clarify orders Special Needs: Heart tones Established Patient Charge Established Patient Point Assignment: 105 Established Patient Point Charge: EP Level 3 (80-115) Assessment & Plan Diagnosis / Problem List (1) Encounter for care in third trimester of first : Status: Acute Plan Discussed comfort measures for sciatic pain. Discussed labor precautions. Kick count twice a day. ER precautions reviewed. Return in a week OB check
== END 2025-02-07 10:09 | disposition home or self-care (01) ==
LOC: HODSOBC 09:33
PROVIDERS: Supervising Provider Advanced Practice Midwife; Visit Provider Advanced Practice Midwife
DX: O09.893 Supervision of other high risk pregnancies, third trimester (principal); O99.891 Other specified diseases and conditions complicating pregnancy; M54.30 Sciatica, unspecified side; Z3A.38 38 weeks gestation of pregnancy; Z88.0 Allergy status to penicillin
CPT/HCPCS: 99213; G0463

== ENCOUNTER 2025-02-16 11:29 | Outpatient (AMB) | payer MEDICAID, SELFPAY ==
[2025-02-16 11:43] VITALS: BP 119/78; PULSE 100; RESP 18; TEMP 36.2; O2SAT 98; BMI 34.0
--- NOTE | 2025-02-16 11:43 | AMB.OBVISIT ---
Vital Signs 02/16/25 11:43 Height 1.55 m Height Method Stated Weight 81.76 kg Weight Measurement Method Standing Scale BMI 34.0 BP 119/78 Blood Pressure Source Automatic Cuff Blood Pressure Location Left Upper Arm Position Standing Respiration 18 Pulse 100 Pulse Source Monitor Temp 97.2 F Temp Source Oral Pulse Oximetry (%) 98 Oxygen Delivery Method Room Air Allergies/Home Meds Allergies & Medications Allergies Penicillins Allergy (Severe, Verified 02/16/25 11:45) Hives Medication Reconciliation vitamin-ferrous fumarate 28 mg iron-folic acid 800 mcg tablet ( Vitamins with Minerals) 1 tab PO QDAY #60 tabs 10/23/24 [Rx Confirmed 02/16/25] Intake Visit Data Collection New Patient or Established: Established Patient (seen at [facility] within 3 years) Reason for Visit:: OBC Seen by Clinical Staff ONLY (RN/MA): No Straddle Carrier Operator Required: No Do You Feel Safe at Home: Yes Authorities Contacted: N/A PCP or OBGYN visit in last 3 months: Yes Date of Last PCP or OBGYN visit: 02/07/25 Hx Now: Yes Are you currently on any form of Control: No Pain Present Currently: No Pain Scale Used: Gonzalez-Ram/Numerical Pain scale:: 0 Smoking Status Smoking Status: Never smoker Immunizations Flu Vaccine in the Last 12 Months: No Flu Vaccine Exclusion Criteria: No Exclusion Criteria Questionnaires PHQ-9 PHQ-2 Over the last 2 weeks, how often have you been bothered by any of the following problems? 1. Little interest or pleasure in doing things: not at all 2. Feeling down, depressed, or hopeless: not at all Total score: 0 PHQ-9 3. Trouble falling or staying asleep, or sleeping too much: Not at all 4. Feeling tired or having little energy: Not at all 5. Poor appetite or overeating: Not at all 6. Feeling bad about yourself - or that you are a failure or have let yourself or your family down: Not at all 7. Trouble concentrating on things, such as reading the newspaper or watching television: Not at all 8. Moving or speaking so slowly that other people could have noticed? - Or the opposite - being so fidgety or restless that you have been moving around a lot more than usual: not at all 9. Thoughts that you would be better off or of hurting yourself in some way: Not at all Total score: 0 If you checked off any problems, how difficult have these problems made it for you to do your work, take care of things at home, or get along with other people?: not difficult at all Source: Developed by Drs. Vargas Landry, Lisa Javier, Hans Moeller and colleagues, with an educational ghassan from [employer]. 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 EDC was corrected to February 18, 2025 by a 9-week 2 ultrasound. Patient is 10 weeks today. She denies bleeding or cramping at this time. She reports nausea but wants to wait on medication to help with that. So I discussed comfort measures for nausea with patient dry diet small meals. I scheduled NT and anatomy scan with maternal- medicine. OB panel was ordered her NIPT and cystic fibrosis and spinal muscular atrophy were also ordered. Discussed SAB precautions. [facility] And patient will be seen in 4 weeks. 08/23/24 <del>?</del> 14w 4d 69.456 kg 115/79 absent 14 154 active patient did not do lab. IUP 14w4, poor date, f/u MFM 6/17. patient had mfm 07/15/24. ob panel re ordered with NIPT and carrier screen. keep MFM appointment. sab precaution, light movement,no sab complaints 09/20/24 <del>?</del> 18w 4d 69.853 kg 106/64 absent unknown 18 18 active No oB complaints, fetus active, no VB,no LOF,no cramps. takes PNV, c/o back ache, AFP today. Ordered tylenol as needed for back pain, discuss comfort measure, keep MFM appointment 10/03 for anatomy scan, sab precaution AFP today. Ordered tylenol as needed for back pain, discuss comfort measure, keep MFM appointment 10/03 for anatomy scan, sab precaution. patient needs oB panel NV 10/23/24 <del>?</del> 23w 2d 72.575 kg 122/77 absent unknown 23 135 active fetus active. MFM appointment 11/09/24. c/o vaginal discharge and labial swelling. denies leaking or bleeding, no cramps OB panel with 3rd tri lab today. comfort measure for vaginitis, gynelotrimin x 7, nuswab plus. ptl precaution, rtc 4 week 11/20/24 <del>?</del> 27w 2d 75.41 kg 116/75 absent unknown 26 135 active fetus active, denies VB,LOF.UC. f/u mfm: 12/10 discuss ptl precaution, hydrate. discuss diet and weight, keep appt: 12/1012/11/24 <del>?</del> 30w 2d 77.111 kg 119/78 absent unknown 30 156 active fetus active per pt, c/o low back pain anf thigh pain. denies leaking,bleeding and uc TDAP NV, discuss ptl precaution TDAP NV, discuss ptl precaution. reviewed. comfot measure for back and leg pain. increase fluid, ptl precaution, rtc 2 week obc 01/23/25 <del>?</del> 36w 3d 80.399 kg 121/78 absent cephalic 35 156 active Declined Tdap. Denies leaking, bleeding, contractions. Reports good movement. Complains of third trimester discomfort GBS today. Reviewed labor precautions and kick count. Increase fluids. Continue prenatals. Discussed danger signs symptoms return in a week for OB check 01/29/25 <del>?</del> 37w 2d 79.946 kg 119/78 occasional cephalic 37 155 active fetus active, deneis UC, leaking, bleeding discuss fkc bid, discuss labor precaution, fkc bid and er precaution, rtc 1 week 02/07/25 <del>?</del> 38w 4d 81.448 kg 135/84 occasional cephalic 38 156 active Increase sciatic pain. Increased contractions and pressure. Reports good movement. Denies any denies PIH complaint Start disability today. Discussed labor precautions. Kick count twice a day. Discussed ER precautions. Comfort measures for sciatic and return in a week OB check 02/16/25 <del>?</del> 39w 6d 81.76 kg 119/78 occasional cephalic 39 145 active 1.5 -2 50 Increased pressure. Increased contractions. Denies leaking or bleeding. Patient reports good movement. Increased pressure. Increased contractions. sve soft/posteriorDenies leaking or bleeding. Patient reports good movement. GBS negative. Reviewed kick count. And reviewed labor precautions and danger signs symptoms. Patient is aware of when to go to the hospital. Return in a week OB check PHIL Calculator Estimated Delivery Date Method Current WG Current Estimate 02/17/25 Ultrasound #1 39w 6d Other Estimates 02/03/25 LMP (Uncertain) 41w 6d 02/17/25 Ultrasound #2 39w 6d 02/17/25 Manual 39w 6d final phil 02/17/25 Notes Visit Date: 01/29/25 Last Updated by: Avelina Hickey CNM GBS- Visit Date: 12/11/24 Last Updated by: Avelina Hickey CNM [facility]fm 11/09: EFW:68% Visit Date: 11/20/24 Last Updated by: Avelina Hickey CNM 11/20/24: Corrected Dates: OB sono: 07/17/24 IUP 9w2. EDC: 02/17/25. O+,abs-, rpr;;nr, rub imm, hbsag-, hiv-,hc-, GC/CT-. 1 hr gtt: normal Visit Date: 09/20/24 Last Updated by: Avelina Hickey CNM 19 yo . wrong dates. sono: 07/11: 9w2. edc 03/13/25. LMP 04/29/24. EDC 02/03/25. NIPT:neg/girl, SMA:neg, CF- Office Procedures OBC Clinic LOC & Office Proc's Nursing/Assessment Patient Status: Established Patient OB Clinic Nursing Assessment: Medication Reconciliation, Update PMH in EMR and Vital Signs OB Clinic Coordination of Care: Consent,records obtained, informed consent, Education Simp Pt/Fam, Lab and Imaging orders, Results/Orders obtained and Staff clarify orders Special Needs: Heart tones Established Patient Charge Established Patient Point Assignment: 110 Established Patient Point Charge: EP Level 3 (80-115) Assessment & Plan Diagnosis / Problem List (1) Encounter for care in third trimester of first : Status: Acute Plan Reviewed labor precautions. Kick count twice a day. Discussed danger signs symptoms ER precautions. Return in a week for OB check Additional Plan Follow Up: 1 Week (obc)
== END 2025-02-16 12:04 | disposition home or self-care (01) ==
LOC: HODSOBC 11:29
PROVIDERS: Supervising Provider Advanced Practice Midwife; Visit Provider Advanced Practice Midwife
DX: Z34.83 Encounter for supervision of other normal pregnancy, third trimester (principal); Z3A.39 39 weeks gestation of pregnancy; Z88.0 Allergy status to penicillin
CPT/HCPCS: 99213; G0463

== ENCOUNTER 2025-02-21 10:12 | Inpatient (IN) | payer MEDICAID, SELFPAY ==
[2025-02-21] VITALS (87 sets, daily range): BP systolic 0–144; BP diastolic 0–95; PULSE 72–106; RESP 16–97; TEMP 36.7–36.9; O2SAT 76–100; BMI 33.5
[2025-02-21 10:49] LABS: ROM Kit Exp Date# 041128; ROM Kit Lot # 58106258; ROM Swab Mixed By: FS; Swb Mxed in Solvent 1 min? Yes
[2025-02-21 10:50] LABS: Rupture of Fetal Membranes Negative (Negative)
--- NOTE | 2025-02-21 10:59 | XR_ITS ---
Examination: Complete OB ultrasound greater than 14 weeks Date and time of exam: 02/21/2025 at 11:28 a.m. INDICATION: Labor evaluation, tachycardia Comparison first trimester ultrasound 07/17/2024. Findings: Viable intrauterine single fetus with single amniotic sac, cephalic position with spine in the maternal left side. Cardiac motion: 173 bpm. Composite estimated gestational age based on BPD, head circumference, abdominal circumference, femur length is 38 weeks 3 days with PHIL 03/04/2025. There is just over a 2-week discrepancy between the sonographic gestational age and the clinical gestational age of 40 weeks 4 days with clinical PHIL of 02/17/2025. survey is limited due to advanced gestational age but the following structures are seen: Three-vessel cord, bladder, kidneys, stomach and spine. Fundal placenta noted, grade 3, without evidence for abruption. MAYRA = 5.3 cm. The cervix is obscured by shadowing from the head. Maternal ovaries obscured by bowel gas. Impression: Single live IUP in cephalic position with spine to maternal left side. Composite estimated gestational age is 38 weeks 3 days with PHIL 03/04/2025. There is just over a 2-week discrepancy between the sonographic gestational age and the clinical gestational age of 40 weeks 4 days with clinical PHIL of 02/17/2025. MAYRA = 5.3 cm. Shadowing from head obscures assessment of the cervical length. Fundal placenta.
[2025-02-21] MEDS: RINGERS LACTATED 1000 ML 1,000 ML 999 ML IV (11:04)
[2025-02-21 11:33] LABS: Basophils # (Auto) 0.0 Thou/mm3 (0.0-0.2); Basophils % (Auto) 0 % (0-2.5); Eosinophils # (Auto) 0.1 Thou/mm3 (0.0-0.5); Eosinophils % (Auto) 1 % (0-10); Hematocrit 35.1 % (36.0-46.0); Hemoglobin 11.8 g/dL (12.0-16.0); Immature Granulocytes Auto 0.04 Thou/mm3 (0.00-0.00); Lymphocytes # (Auto) 1.7 Thou/mm3 (1.0-4.8); Lymphocytes % (Auto) 17 % (10-50); Mean Corpuscular HGB Conc 33.6 g/dl (31.0-37.0); Mean Corpuscular Hemoglobin 28.9 pg (25.0-35.0); Mean Corpuscular Volume 86 fL (80-100); Monocytes # (Auto) 0.8 Thou/mm3 (0.0-0.8); Monocytes % (Auto) 8 % (0-12); Neutrophils # (Auto) 7.4 Thou/mm3 (1.8-7.7); Neutrophils % (Auto) 73 % (37-80); Nucleated Red Blood Cell # 0.00 Thou/mm3 (0.00-0.00); Nucleated Red Blood Cell % 0 /100 WBC (0); Platelet Count 223 Thou/mm3 (140-440); RDW Standard Deviation 44.2 fL (36.4-46.3); Red Blood Count 4.08 Miln/mm3 (4.00-5.20); White Blood Count 10.1 Thou/mm3 (3.6-11.0)
[2025-02-21] MEDS: RINGERS LACTATED 1000 ML 1,000 ML 100 ML IV ×2 (12:05→15:18)
[2025-02-21 12:09] LABS: Syphilis Nonreactive (Nonreactive)
[2025-02-21] MEDS: OXYTOCIN in NS 30 units 30 UNIT/500 ML BAG IV (13:57)
[2025-02-21] MEDS: fentaNYL CIT INJ 50 mCg/ML AMP 2ML 100 MCG IVP ×3 (14:59→18:43)
--- NOTE | 2025-02-21 16:28 | ESHP_ITS ---
Documentation for date of: 02/21/25 OB Labor/Induct. HPI History of Present Illness Chief complaint: leaking since 0400 : 2 Para: 1 Term pregnancies: 1 pregnancies: 0 Living children: 1 History of Abortions: Spontaneous and Elective: 0 History of Vaginal deliveries: 1 History of sections: No History of : No Date of last menstrual period: 05/13/24 PHIL: 02/17/25 Gestational Age (weeks): 40 Gestational Age (days): 4 Gestational age based on last menstrual period: 40 History of present illness: 19-year-old 2 para 1 with complaints of leaking fluid since 4 in the morning. She also complained of contractions. Patient has been followed at [facility] OB clinic. Her first visit was that 14 weeks. Denies any existence of health issues. Denies social habits. Denies surgeries.. Reports movement. And reports clear fluid. Her last. Was May 13, 2025. This gives a due date of February 17, 2025. And patient had a 9-week ultrasound in June that also gives due date February 17, 2025. Patient is O+, antibody screen negative, RPR nonreactive, rubella, hepatitis B negative, HIV negative, hep hep C negative, she is in Chlamydia were negative. Patient had normal 1 hour. Her NIPT and carrier screens were negative. GBS negative. Patient had an MAYRA today and the fluid was 5.6. And vertex presentation. History of Present Dating criteria: LMP confirmed by 1st trimester US Adequate Care: Yes Ultrasounds: normal 1st trimester US and normal mid trimester US Obstetrical complications: none Medical complications: none Labs Labs: Positive: Rubella Titre, Negative: RPR, Hepatitis B, HIV, Chlamydia, Gonorrhea and Group Beta Strep and Unknown: Herpes Type 1, Herpes Type 2 and Covid-19 Review of Systems Review of Systems Systems Reviewed: All systems reviewed, normal except as documented Past Medical History Surgical History SURGICAL: Negative Section Meds Home Medications and Allergies Allergies Allergy/AdvReac Type Severity Reaction Status Date / Time Penicillins Allergy Severe Hives Verified 02/21/25 10:24 OB Exam Physical Exam Vital signs: Temp Pulse Resp BP Pulse Ox O2 Del Method 98.2 F 89 18 144/95 H 98 Room Air 02/21/25 11:53 02/21/25 15:17 02/21/25 11:53 02/21/25 15:17 02/21/25 16:21 02/21/25 11:53 Narrative: Vital signs stable afebrile. Alert and oriented. Normal heart rate and rhythm. Lungs clear no wheezes. Gravid abdomen. Gynecoid pelvis. Estimated weight 7 pounds 10 ounces. Vaginal exam on admission was 80%, 2 and posterior. AmniSure on admission was negative. However bag poole fell. heart rate category 2 on admission with tachycardia. And variables and occasional late were also seen so patient was kept for induction. After IV hydration though heart rate improved to category 1 Detailed Labor and Delivery Exam Dilation (cm): 2 Effacement (%): 70 Cervix position: posterior station: -3 Consistency: medium Presentation: Vertex Cervical ripeness score: 4 Membranes: ruptured Amniotic fluid: clear Baseline heart rate: 155 monitor accelerations: 15x15 monitor decelerations: Variable longterm variability: Moderate (11-25) Contraction frequency (min): irregular Contraction duration (sec): 30 Tachysystole: Yes Contraction intensity: Mild OB Results Labs 02/21/25 11:00 Labs: Short CBC 02/21/25 Range/Units 11:00 WBC 10.1 (3.6-11.0) Thou/mm3 Hgb 11.8 L (12.0-16.0) g/dL Hct 35.1 L (36.0-46.0) % Plt Count 223 (140-440) Thou/mm3 OB Assessment & Plan Assessment and Plan (1) Normal labor and delivery: Status: Acute Additional Plan Induction method: per pitocin protocol Plan: augmentation, GBS prophylaxis tx and consult MD sparks
[2025-02-21] MEDS: MINERAL OIL 30 ML UDC TOP (20:11)
[2025-02-21] MEDS: LIDOCAINE HCL 1% 20 ML VIAL INFL (20:11)
[2025-02-21] MEDS: OXYTOCIN INJ 10 UNIT/ML VIAL IM (20:11)
[2025-02-21] MEDS: BENZO/LANO/ALOE (Dermoplast) 60 GM CAN 1 SPRAY TOP (20:12)
[2025-02-21] MEDS: OXYTOCIN in NS 20 units 20 UNIT/1,000 ML BAG 125 UNIT IV (20:13)
--- NOTE | 2025-02-21 20:42 | OBDSUM_ITS ---
Data (Mary) Data Hx Section: No : 2 Term: 1 : 0 Livin Abortions: Spontaneous & Theraputic: 0 Delivery Data (Mary) Labor Data Initiation of labor: Spontaneous Induction/Augmentation Agent: Pitocin ROM date: 02/21/25 ROM time: 19:05 Amniotic membrane rupture type: Artificial Amniotic fluid description: Clear Delivery Data EDC: 02/17/25 EDC calculated by:: LMP/early US confirmation Date of arrival to unit: 02/21/25 Time of arrival to unit: 10:12 Onset of labor date: 02/21/25 Onset of labor time: 17:00 Complete dilation date: 02/21/25 Complete dilation time: 19:30 delivery date: 02/21/25 [place] delivery time: 19:46 Gestational age (weeks): 40 Gestational age (days): 2 Placenta delivery date: 02/21/25 Placenta delivery time: 19:53 Stage 1 total time: Labor - Stage 1 Duration 2 hours and 30 minutes Delivered by: KEM ATKINS Delivery nurse: merly Muñiz nurse: trev moss Roll Or Tape Edge Machine Operator at delivery: No Support person(s) at delivery: father of baby Other staff at delivery: ron carlton rnc Delivery Method Delivery method: Normal Vaginal Delivery Presentation: Vertex position: OA Anesthesia Type Anesthesia Type: Local Delivery Room Medications Delivery room medications given: fentanyl x3 Delivery room medications: Lidocaine (local), Pitocin 10 u IM, Pitocin 20 u IV, Cytotec 800 MA and other (txa x2) Placenta Placenta delivery description: Spontaneous Cord blood sent to lab: Yes cord blood collection: Cord Blood Type Episiotomy Episiotomy description: Midline Perineal repair Sutures used for repair: 3.0 Vicryl EBL Estimated blood loss (ml): 400 Umbilical Cord cord description: 3 Vessels Data (Mary) [place] Data order: 1 's gender: Female Identification band number: [id number] weight (gms): 3395 g Weight (pounds): 7 lbs and 7.8 ozs 1 minute: 9 5 minutes: 9 10 minutes: 9
[2025-02-21] MEDS: IBUPROFEN TAB 400 MG TABLET 800 MG PO (20:47)
[2025-02-22] VITALS: BP 122/79; PULSE 85; RESP 18; TEMP 36.8; O2SAT 98
[2025-02-22] MEDS: ACETAMINOPHEN 325 MG TABLET 650 MG PO ×2 (03:16→20:39)
[2025-02-22 03:21] VITALS: BP 133/80; PULSE 76; RESP 16; TEMP 36.9; O2SAT 96
[2025-02-22 06:35] LABS: Basophils # (Auto) 0.0 Thou/mm3 (0.0-0.2); Basophils % (Auto) 0 % (0-2.5); Eosinophils # (Auto) 0.1 Thou/mm3 (0.0-0.5); Eosinophils % (Auto) 1 % (0-10); Hematocrit 31.7 % (36.0-46.0); Hemoglobin 10.7 g/dL (12.0-16.0); Immature Granulocytes Auto 0.05 Thou/mm3 (0.00-0.00); Lymphocytes # (Auto) 2.3 Thou/mm3 (1.0-4.8); Lymphocytes % (Auto) 17 % (10-50); Mean Corpuscular HGB Conc 33.8 g/dl (31.0-37.0); Mean Corpuscular Hemoglobin 29.0 pg (25.0-35.0); Mean Corpuscular Volume 86 fL (80-100); Monocytes # (Auto) 1.0 Thou/mm3 (0.0-0.8); Monocytes % (Auto) 7 % (0-12); Neutrophils # (Auto) 9.8 Thou/mm3 (1.8-7.7); Neutrophils % (Auto) 74 % (37-80); Nucleated Red Blood Cell # 0.00 Thou/mm3 (0.00-0.00); Nucleated Red Blood Cell % 0 /100 WBC (0); Platelet Count 199 Thou/mm3 (140-440); RDW Standard Deviation 45.0 fL (36.4-46.3); Red Blood Count 3.69 Miln/mm3 (4.00-5.20); White Blood Count 13.2 Thou/mm3 (3.6-11.0)
[2025-02-22 08:00] VITALS: BP 123/78; PULSE 76; RESP 18; TEMP 36.8; O2SAT 96
--- NOTE | 2025-02-22 08:29 | PD.LDPPPRG ---
Subjective Subjective Interval history: No complaints of pain. No dizziness. Bonding and breast-feeding Exam Vital Signs Temp Pulse Resp BP Pulse Ox O2 Del Method 98.5 F 76 16 133/80 H 96 Room Air 02/22/25 03:21 02/22/25 03:21 02/22/25 03:21 02/22/25 03:21 02/22/25 03:21 02/22/25 03:21 Narrative Exam Vital signs are stable afebrile. Lungs are clear no wheezes. Normal heart rate and rhythm. Breasts are soft nontender. Abdomen is soft nontender uterus well involuted at umbilicus. Perineum is intact. Midline episiotomy is healing .no swelling noted .no signs of infection noted. Small lochia. Negative Homans' sign. 2+ DTRs Objective Labs 02/22/25 04:40 Labs: Laboratory Results - last 24 hr 02/21/25 02/21/25 02/22/25 10:31 11:00 04:40 WBC 10.1 13.2 H RBC 4.08 3.69 L Hgb 11.8 L 10.7 L Hct 35.1 L 31.7 L MCV 86 86 MCH 28.9 29.0 MCHC 33.6 33.8 RDW Std Deviation 44.2 45.0 Plt Count 223 199 Neut % (Auto) 73 74 Lymph % (Auto) 17 17 [place] % (Auto) 8 7 Eos % (Auto) 1 1 Baso % (Auto) 0 0 Neut # (Auto) 7.4 9.8 H Lymph # (Auto) 1.7 2.3 [place] # (Auto) 0.8 1.0 H Eos # (Auto) 0.1 0.1 Baso # (Auto) 0.0 0.0 Immature Gran # (Auto) 0.04 H 0.05 H Absolute Nucleated RBC 0.00 0.00 Immature Gran % 0 0 Nucleated RBC % 0 0 Membrane Rupture Negative Syphilis Serology Nonreactive Blood Type O Positive Antibody Screen NEGATIVE Blood Bank Wristband ID Yes Assessment & Plan Problem List (1) Normal labor and delivery: Status: Acute Assessment Comment Assessment comment: 24-hour Plan Comment Plan Comment: Discharge home with baby in the evening when it baby is discharged. Continue vitamins and iron. Tylenol ibuprofen for pain. Discussed danger signs symptoms and ER precautions. I discussed comfort measures for midline episiotomy and sitz bath twice a day. Discussed signs and symptoms of infection. Increase fluids. Return for 3 weeks visit Time Spent With Patient Time: Total time spent is greater than 50% in coordination of care (as documented) at patient's floor/unit and/or counseling patient:
--- NOTE | 2025-02-22 08:33 | ESDS_ITS ---
DS: Providers Provider Date of admission: 02/21/25 11:50 Primary care physician: Physician No Primary/Family Admitting Provider: Avelina Hickey CNM Attending Provider on Admission: Avelina Hickey CNM Consults: 02/21/25 20:50 Referral Routine Comment: Attending Provider on DC: Avelina Hickey CNM Discharging Provider: Avelina Hickey CNM DS: Diagnosis Problem List Completed Was Problem List Reviewed/Reconciled?: Yes Summary/Hosp Course Brief History: 19-year-old 2 para 1 with complaints of leaking fluid since 4 in the morning. She also complained of contractions. Patient has been followed at [facility] clinic. Her first visit was that 14 weeks. Denies any existence of health issues. Denies social habits. Denies surgeries.. Reports movement. And reports clear fluid. Her last. Was May 13, 2025. This gives a due date of February 17, 2025. And patient had a 9-week ultrasound in June that also gives due date February 17, 2025. Patient is O+, antibody screen negative, RPR nonreactive, rubella, hepatitis B negative, HIV negative, hep hep C negative, she is in Chlamydia were negative. Patient had normal 1 hour. Her NIPT and carrier screens were negative. GBS negative. Patient had an MAYRA today and the fluid was 5.6. And vertex presentation. Peripartum Data Delivery Method: Normal Vaginal Delivery Episiotomy Description: Midline Laceration Description: no Time Spent with Patient Time attestation: Total time spent providing and/or coordinating discharge services: Exam Vital Signs Temp Pulse Resp BP Pulse Ox O2 Del Method 98.5 F 76 16 133/80 H 96 Room Air 02/22/25 03:21 02/22/25 03:21 02/22/25 03:21 02/22/25 03:21 02/22/25 03:21 02/22/25 03:21 Discharge Plan Plan Patient Disposition: HOME (Self Care) Patient condition on transfer: Stable Prescriptions/Referrals Prescriptions/Med Rec: No Action vit-iron fum-folic ac [ Vitamin with Minerals] 28 mg iron- 800 mcg tablet 1 tab PO QDAY Qty: 60 3RF Referrals: No Primary/Family,Physician [Primary Care Provider] Patient/Caregiver Discharge Instructions Meds to Beds: No Discharge Activity: resume usual activities Print Language: Albanian Activity Restrictions/Additional Instructions: Discharge home with baby after 7. Reviewed danger signs symptoms and ER precautions. Discussed signs symptoms of infection. Discussed wound care. Sitz bath's twice a day. Comfort measures. Increase fluids. Continue Tylenol or ibuprofen for discomfort. Return in 3 weeks visit Stand Alone Forms: Brianna Award Info., Patient Portal Info Letter Discharge Order Discharge Orders: Discharge (Routine); Ordered 02/22/25 Ordered By: Avelina Hickey Planned Discharge Date 02/22/25
[2025-02-22] MEDS: DOCUSATE SOD 100 MG CAPSULE PO (09:45)
[2025-02-22 12:00] VITALS: BP 123/76; PULSE 82; RESP 16; TEMP 36.9
[2025-02-22] MEDS: IBUPROFEN TAB 400 MG TABLET 800 MG PO (12:11)
[2025-02-22 16:00] VITALS: BP 131/84; PULSE 76; RESP 16; TEMP 36.8; O2SAT 96
[2025-02-22 20:33] VITALS: BP 137/89; PULSE 67; RESP 16; TEMP 36.9; O2SAT 97
[2025-02-22] MEDS: DIPHTH,PERTUSS(ACELL),TET VAC 0.5 ML SYR- ADULT IMi (21:37)
== END 2025-02-22 21:43 | disposition home or self-care (01) | DRG 560 ==
LOC: S4SX 20:39 → S4NX 21:56
PROVIDERS: Admitting Provider Advanced Practice Midwife; Visit Provider Advanced Practice Midwife
DX: O48.0 Post-term pregnancy (principal); Z37.0 Single live birth; Z3A.40 40 weeks gestation of pregnancy; Z88.0 Allergy status to penicillin
CPT/HCPCS: 36415; 59025; 59409; 76805; 84112; 85025; 86780; 86850; 86900; 86901; 90715; 94762; J2590; J3010; J3490; J7120; S0191; A9270

== ENCOUNTER 2025-03-01 19:54 | Emergency (ER) | payer MEDICAID, SELFPAY ==
[2025-03-01 19:55] VITALS: BP 142/92; PULSE 89; RESP 21; TEMP 37.3; O2SAT 97
[2025-03-01 19:56] VITALS: PULSE 96; RESP 18; O2SAT 100
--- NOTE | 2025-03-01 20:01 | XR_ITS ---
EXAMINATION: AP chest single view TECHNIQUE: AP portable upright chest single view Date and time: March 01, 2025, 2023 hours INDICATIONS: 9 days chest pain beginning 2 days ago. FINDINGS: Normal heart size Lungs are clear. The osseous structures are intact IMPRESSION: No active disease
--- NOTE | 2025-03-01 20:08 | XR_ITS ---
Examination: CT abdomen with intravenous contrast CT pelvis with intravenous contrast 2-D coronal reconstructions 2-D sagittal reconstructions Date and time of exam: March 01, 2025, 1001 hours INDICATIONS: Onset right lower abdominal pain today. CTDI: vol (mGy) 7.85 DLP: (mGycm) 431 Technique: Multiple axial sections of the abdomen and pelvis have been obtained. 64 slice high-resolution scanner used. 3 mm axial sections have been obtained, post intravenous injection 60 cc [id number] 2-D sagittal, coronal reconstructions obtained. Low dose protocols were performed. One or more of the following dose reduction techniques were used; automated exposure control, adjustment of the mA and/or KV according to patient size, use of iterative reconstruction technique. Findings: No focal liver or splenic lesions No gallstones No pancreatic mass Aorta normal size No renal or ureteral calculi, small fat-containing umbilical hernia. Normal appendix No bowel obstruction or diverticulitis Mildly fluid distended small bowel loops in the pelvis, enlarged uterus Urinary bladder wall thickening Mild disc narrowing L5-S1 IMPRESSION: No renal or ureteral calculi, no hydronephrosis Normal appendix Mild small bowel ileus Enlarged post uterus If retained products of conception are a clinical consideration consider pelvic sonography follow-up Cystitis pattern
[2025-03-01 20:09] LABS: Lactate (Lactic Acid) 2.1 mMol/L (0.4-2.0)
--- NOTE | 2025-03-01 20:09 | EDNOTE_ITS ---
ED Abdominal Pain RME/HPI General Chief Complaint: Abdominal Pain Stated complaint: ABDOMINAL PAIN Time seen by provider: 03/01/25 19:57 Arrival date/time: 03/01/25 19:54 19-year-old female patient, 9 days , came in for evaluation regarding sudden onset of right lower abdominal pain, described as sharp pain, feels like there is a knot on the area, severity 10 out of 10 patient is crying. Patient told me that she is still having vaginal discharge, described as serosanguineous. Patient denies any vomiting no fever no other complaints noted. She had a normal vaginal delivery done here. Patient was given fentanyl [address] to the emergency room Related Data Previous Rx's ?Medication ?Instructions ?Recorded vitamin-ferrous fumarate 1 tab PO QDAY #60 ta bs 10/23/24 28 mg iron-folic acid 800 mcg tablet ( Vitamins with Minerals) cephalexin 500 mg capsule 500 mg PO TID 7 days #21 cap s 03/01/25 Allergies Allergy/AdvReac Type Severity Reaction Status Date / Time Penicillins Allergy Severe Hives Verified 02/21/25 10:24 Review of Systems Review of Systems Narrative Review of Systems: Review of system reviewed and within normal limits except mentioned in HPI ED Exam Narrative Physical exam: VITAL SIGNS: Reviewed. GENERAL APPEARANCE: Alert and interactive, follows commands, no acute distress, HEAD AND FACE: Non-traumatic. ENT: PERRL, pink conjunctivitis, eyelid no trauma, Mucous membrane moist. NECK: Supple, nontender, no nuchal rigidity. CHEST: No tenderness, no crepitus, no paradoxical movement, no retractions. LUNGS: Clear, well ventilated, symmetric, no rales, no wheezing, no ronchi, no stridor, good breath sounds bilaterally. HEART: Regular rate, regular rhythm, no murmur, no gallops. ABDOMEN: Soft, positive bowel sounds, nondistended, no guarding, right lower quadrant tenderness r, no rebound, no masses, RECTAL: Deferred. GENITAL: Deferred. NEUROLOGICAL: Gross motor function intact sensory function intact, Appropriate for age. MUSCULOSKELETAL: low back nontender, full range of motion. EXTREMITIES: Nontender, full range of motion. SKIN: Color pink, dry, no rash, no lacerations, no abrasions, no contusions. LYMPHATICS: Deferred. Course Quality Measures none Orders Category Date Time Status CT Screening NOW Care 03/01/25 20:[address] abdomen pelvis w con Stat Exams 03/01/25 20:08 Completed XR chest 1V Stat Exams 03/01/25 20:01 Completed C-Reactive Protein Stat Lab 03/01/25 20:05 Completed CBC Stat Lab 03/01/25 20:05 Completed Comprehensive Metabolic Panel Stat Lab 03/01/25 20:05 Completed Lactate (Lactic Acid) Stat Lab 03/01/25 20:05 Results Partial Thromboplastin Time Stat Lab 03/01/25 20:05 Completed Procalcitonin Stat Lab 03/01/25 20:05 Completed UA, C/S IF [Urinalysis, C/S if Indicated] Stat Lab 03/01/25 22:02 Completed Urine Culture Stat Lab 03/01/25 22:02 Received Magnesium Citrate Liqd [Citrate of Magnesia Liqd] Med 03/01/25 23:04 Discontinued 300 ml PO X1 ONE Morphine* Inj Med 03/01/25 20:09 Discontinued 4 mg IVP X1 ONE Ringers Lactated 1000 ml [Lactated Ringers] 1,000 ml Med 03/01/25 20:08 Discontinued IV 999 mls/hr cefTRIAXone/D5w 1gm IV premix [Rocephin/D5w 1gm IV Med 03/01/25 22:57 Active premix] 1 gm in 50 ml IV X1 Vital Signs Vital signs: Vital Signs Temperature 99.2 F 03/01/25 19:55 Pulse Rate 89 03/01/25 19:55 Respiratory Rate 21 H 03/01/25 19:55 Blood Pressure 142/92 H 03/01/25 19:55 Pulse Oximetry (%) 97 03/01/25 19:55 Oxygen Delivery Method Room Air 03/01/25 19:55 Abdominal Pain MDM MDM Narrative MDM Narrative:: 19-year-old female patient, 9 days , came in for evaluation regarding sudden onset of right lower abdominal pain, described as sharp pain, feels like there is a knot on the area, severity 10 out of 10 patient is crying. Patient told me that she is still having vaginal discharge, described as serosanguineous. Patient denies any vomiting no fever no other complaints noted. She had a normal vaginal delivery done here. Patient was given fentanyl [address] to the emergency room. Patient also complained of constipation. Last bowel movement today was small. CT scan of the abdomen and pelvis came back with cystitis pattern otherwise unremarkable. Normal appendix. Laboratory workup significant for UTI patient was given IV fluids, mag citrate morphine and ceftriaxone IV Stable for charged home Patient data External records reviewed:: None Clinical information provided by:: patient Social determinants that could affect healthcare access:: none Patient has the following chronic illnesses:: None How is presenting disease/condition affected by chronic disease/condition?: no chronic disease Evaluation data The following diagnostics were reviewed and interpreted by me:: lab results and radiology exam(s) Lab and/or radiology exams considered but not ordered:: None Interpretation Summary: See [facility] Medications / Prescriptions Medications or Prescriptions considered but not ordered:: None Medication administrations:: Medication Administration History Ceftriaxone Sodium/Dextrose (Rocephin/D5w 1gm Iv Premix) 1 gm in 50 mls @ 100 mls/hr IV X1 ONE Stop: 03/01/25 23:26 Discontinued Medications Lactated Ringer's (Lactated Ringers) 1,000 mls @ 999 mls/hr IV .Q1H1M ONE Stop: 03/01/25 21:08 Last Infusion: 03/01/25 21:11 Dose: Infused Documented By: Admin: 03/01/25 20:14 Dose: 999 mls/hr Documented By: ELIE Magnesium Citrate (Magnesium Citrate 300 Ml Btl) 300 ml PO X1 ONE Stop: 03/01/25 23:05 Morphine Sulfate (Morphine Sulf Inj 4 Mg/Ml Vial) 4 mg IVP X1 ONE Stop: 03/01/25 20:10 Last Admin: 03/01/25 20:14 Dose: 4 mg Documented By: ELIE See [facility] Consultations Consultation(s) initiated? (list below): No Diagnosis Differential diagnosis abdominal pain: abdominal pain, acute appendicitis, small bowel obstruction and other (UTI, constipation) Most likely diagnosis given after review of the tests above:: UTI, prescription Admission Indicated Admission indicated?: not indicated Admission Request Was there a request for admission?: No Disposition Plan Disposition Plan: Discharge Discharge Attestation Discharge Attestation: The patient and all family members were given an opportunity to ask questions and understood the discharge instructions. Discharge instructions specifically effects, indications for sooner follow up or return to the emergency department, and the expected course of current diagnosis. Patient condition: Stable Discharge Plan Plan Patient Disposition: HOME (Self Care) Discharge Disposition comment: Stable Prescriptions/Referrals Prescriptions/Med Rec: New cephalexin 500 mg capsule 500 mg PO TID 7 Days Qty: 21 0RF No Action vit-iron fum-folic ac [ Vitamin with Minerals] 28 mg iron- 800 mcg tablet 1 tab PO QDAY Qty: 60 3RF Referrals: No Primary/Family,Physician [Primary Care Provider] - In 1 week Problem List Clinical Impression: Abdominal pain, Constipation, UTI (urinary tract infection) Patient/Caregiver Discharge Instructions Discharge Activity: activity as tolerated Education Materials: Understanding Urinary Tract ... Additional Instructions: Thank you for the opportunity for serving you today. You are stable for discharged . You are advised to: Follow-up with your PCP in 1 to 2 days Return to ED for worsening of symptoms Increase oral fluids Take medication as prescribed Print Language: Mauritian Stand Alone Forms: Brianna Award Info., Patient Portal Info Letter PA/ROD TAPE OPERATOR Supervising Physician PA/ROD TAPE OPERATOR Supervising Physician: MD Dariana
[2025-03-01 20:13] LABS: Basophils # (Auto) 0.0 Thou/mm3 (0.0-0.2); Basophils % (Auto) 0 % (0-2.5); Eosinophils # (Auto) 0.3 Thou/mm3 (0.0-0.5); Eosinophils % (Auto) 3 % (0-10); Hematocrit 37.6 % (36.0-46.0); Hemoglobin 12.5 g/dL (12.0-16.0); Immature Granulocytes Auto 0.08 Thou/mm3 (0.00-0.00); Lymphocytes # (Auto) 3.1 Thou/mm3 (1.0-4.8); Lymphocytes % (Auto) 28 % (10-50); Mean Corpuscular HGB Conc 33.2 g/dl (31.0-37.0); Mean Corpuscular Hemoglobin 28.4 pg (25.0-35.0); Mean Corpuscular Volume 86 fL (80-100); Monocytes # (Auto) 0.8 Thou/mm3 (0.0-0.8); Monocytes % (Auto) 8 % (0-12); Neutrophils # (Auto) 6.5 Thou/mm3 (1.8-7.7); Neutrophils % (Auto) 60 % (37-80); Nucleated Red Blood Cell # 0.00 Thou/mm3 (0.00-0.00); Nucleated Red Blood Cell % 0 /100 WBC (0); Platelet Count 354 Thou/mm3 (140-440); RDW Standard Deviation 45.0 fL (36.4-46.3); Red Blood Count 4.40 Miln/mm3 (4.00-5.20); White Blood Count 10.9 Thou/mm3 (3.6-11.0)
[2025-03-01] MEDS: MORPHINE SULF INJ 4 MG/ML VIAL IVP (20:14)
[2025-03-01] MEDS: RINGERS LACTATED 1000 ML 1,000 ML 999 ML IV (20:14)
[2025-03-01 20:25] LABS: Partial Thromboplastin Time 24.7 Seconds (22.0-36.0)
[2025-03-01 20:38] LABS: Alanine Aminotransferase 52 U/L (10-49); Albumin, Serum 4.4 gm/dL (3.5-5.0); Albumin/Globulin Ratio 1.8 (1.2-2.2); Alkaline Phosphatase 250 U/L (46-116); Anion Gap 11 (7-16); Aspartate Amino Transferase 50 U/L (0-34); BUN/Creatinine Ratio 19 Ratio (12-20); Bilirubin,Total 0.2 mg/dL (0.3-1.2); Blood Urea Nitrogen 15 mg/dL (9-23); C-Reactive Protein 0.8 mg/dL (0.0-0.9); Calcium 9.1 mg/dL (8.3-10.6); Calcium (Corrected) 9.1 mg/dL (8.5-10.1); Carbon Dioxide 24.3 mMol/L (20.0-31.0); Chloride 106 mMol/L (98-107); Creatinine (Component) 0.8 mg/dL (0.6-1.3); Globulin 2.5 gm/dL (2.3-3.5); Glucose 92 mg/dL (74-106); Osmolality,Calculated 282 (275-295); Potassium 4.4 mMol/L (3.4-5.1); Procalcitonin 0.05 ng/ml (0.0-0.49); Sodium 141 mMol/L (136-145); Total Protein 6.9 gm/dL (5.7-8.2); eGFR > 60 See Note
[2025-03-01 22:24] LABS: Collection Type, Urine Clean Catch
[2025-03-01 22:35] LABS: Bilirubin,Urine Negative (Negative); Blood,Urine 3+ (Negative); Clarity,Urine Clear (Clear/Hazy); Color,Urine Lt-Yellow (Lt Yel-Yel); Glucose, Urine Negative (Negative); Ketones,Urine Negative (Negative); Leukocyte Esterase,Urine Positive (Negative); Nitrite,Urine Negative (Negative); PH,Urine 7.0 (5.0-7.0); Protein,Urine Trace (Neg - Trace); RBC,Urine 12 /hpf (0-3); Specific Gravity,Urine 1.017 (1.001-1.035); Squamous Epithelial Cell,Urine 3 /hpf (0-5); Urobilinogen,Urine Negative mg/dL (0.0-1.0); WBC,Urine 36 /hpf (0-5)
[2025-03-01 22:36] LABS: Culture Indicated,Urine Yes
[2025-03-01 23:08] LABS: Reflex Lactate? Y
[2025-03-01] MEDS: cefTRIAXone/D5w 1gm IV premix 1 GM/50 ML BAG IV (23:12)
[2025-03-01] MEDS: MAGNESIUM CITRATE 300 ML BTL PO (23:13)
== END 2025-03-01 23:42 | disposition home or self-care (01) ==
PROVIDERS: Nurse Practitioner Family; Emergency Provider Emergency Medicine
DX: N39.0 Urinary tract infection, site not specified (principal); K59.00 Constipation, unspecified; N89.8 Other specified noninflammatory disorders of vagina
CPT/HCPCS: 36415; 71045; 74177; 80053; 81001; 83605; 84145; 85025; 85730; 86140; 87077; 87086; 87186; 96361; 96365; 96375; 99284; A4649; J0696; J2270; J7120; Q9967; A9270